=== PATIENT | female | born 1950 | race Caucasian/White ===

== ENCOUNTER → 2020-05-17 11:47 | Outpatient (BNVA) | payer MEDICARE, SELFPAY | PROVIDERS: Family Provider Nurse Practitioner Family; PCP Family Medicine; Referring Provider Nurse Practitioner Family; Visit Provider Orthopaedic Surgery | DX: M25.561 Pain in right knee (principal); M25.562 Pain in left knee; G89.29 Other chronic pain | CPT/HCPCS: 73560; 73565 ==

== ENCOUNTER → 2020-07-15 09:56 | Outpatient (BNVA) | payer MEDICARE, SELFPAY | PROVIDERS: PCP Family Medicine; Visit Provider Internal Medicine | DX: Z20.818 Contact with and (suspected) exposure to other bacterial communicable diseases (principal) | CPT/HCPCS: 87635 ==

== ENCOUNTER 2020-07-18 15:00 | Observation (INO) | payer MEDICARE, SELFPAY ==
[2020-07-12 11:52] VITALS: BMI 37.4
--- NOTE | 2020-07-12 12:05 | ECG_ITS ---
[facility] Test Date: 2020-07-12 Pat Name: Celsa Young Department: Room: Gender: Female Locum Tenens Hospitalist: : 1950 Requested By: Papito Evans Order Number: [id number] Jozef MD: Juan Antonio Mcdaniel M.D. Measurements Intervals [place] Rate: 64 P: 43 CT: 165 QRS: 1 QRSD: 98 T: -3 QT: 412 QTc: 426 Interpretive Statements SINUS RHYTHM ST DEVIATION AND MODERATE T-WAVE ABNORMALITY, CONSIDER ANTERIOR ISCHEMIA [-0.1+ mV T WAVE IN V3/V4] Compared to ECG 05/18/2019 05:59:32 No significant changes Electronically Signed On 07-12-2020 17:29:54 CDT by Juan Antonio Mcdaniel M.D. [id number]
[2020-07-12 12:16] LABS: Basophils % 0.4 %; Eosinophils # 0.2 10^3/uL (0.0-0.8); Eosinophils % 3.3 %; Hematocrit 40.4 % (37.0-47.0); Hemoglobin 12.9 g/dL (11.5-15.3); Lymphocytes % 26.8 %; Mean Corpuscular HGB Conc 31.9 g/dL (30.0-36.0); Mean Corpuscular Hemoglobin 28.4 pg (28.0-34.0); Mean Corpuscular Volume 88.8 fL (81-99); Mean Platelet Volume 9.2 fL (7.4-10.4); Monocytes # 0.4 10^3/uL (0.2-0.9); Monocytes % 5.8 %; Neutrophils # 4.61 10^3/uL (1.8-7.7); Neutrophils % 63.4 %; Nucleated Red Blood Cells % 0 %; Platelet Count 180 10^3/cmm (130-400); Red Blood Count 4.55 10^6/uL (4.1-5.3); Red Cell Distribution Width 13.6 % (12.1-15.1); White Blood Count 7.3 10^3/uL (4.0-10.0)
--- NOTE | 2020-07-12 12:29 | P.ANESASSM_ITS ---
Pre-Anesthetic Assessment Pre-Anesthetic Assessment: Height/Weight: Height 1.63 m Weight 98.883 kg Proposed Procedure: Operation Date: 07/18/20 12:00 Proposed Procedures p Total Knee Arthroplasty 48962 M17.12(Left) - Papito Evans MD Familial anesthetic complications: None Social: Social History: No alcohol and No tobacco Exam: Pre-Anes Outpt Exam: alert, oriented x 3, clear to auscultation bilaterally and regular rate & rhythm Airway: Cervical ROM: WNL MP: 4 Dentition: Loose Pulmonary: Pulmonary: Asthma and COPD CV/HEM: CV/HEM: CAD, CHF and HTN GI: GI: GERD Metabolic: Metabolic: DM, Hyperlipidemia, Morbid obesity and Thyroid Musc/skel: Comments: R shoulder pain Neuropsych: Neuropsych: None reported Anesthetic Plan: ASA status: 3 Anesthesia: Eval. for regional block and Regional (specify below) (spinal) Risk of > 500 ml blood loss (7ml/kg in children): No PFSH Anesthesia PFSH: Medical History HTN (hypertension) Surgical History S/P coronary angiogram Family History Other Cancer Diabetes Social History Smoking and tobacco status: former smoker Data Anesthesia CBC & Chem 7: 07/12/20 12:10 07/12/20 12:10 Other Labs: Laboratory Results - last 48 hr 07/12/20 12:10 WBC 7.3 RBC 4.55 Hgb 12.9 Hct 40.4 MCV 88.8 MCH 28.4 MCHC 31.9 RDW 13.6 Plt Count 180 MPV 9.2 Neut % (Auto) 63.4 Lymph % (Auto) 26.8 [place] % (Auto) 5.8 Eos % (Auto) 3.3 Baso % (Auto) 0.4 Neut # (Auto) 4.61 Lymph # (Auto) 2.0 [place] # (Auto) 0.4 Eos # (Auto) 0.2 Baso # (Auto) 0.0 Nucleated RBC % (auto) 0 Nucleated RBCs # 0.0 Cardiac Studies: No Data to Display
[2020-07-12 12:32] LABS: Anion Gap 12.8 (5-19); Blood Urea Nitrogen 12 mg/dL (8-23); Calcium 9.9 mg/dL (8.5-10.5); Carbon Dioxide 28 mmol/L (22-29); Chloride 103 mmol/L (98-107); Creatinine Clr Calc Pharmacy 74.7605; Glomerular Filtration Rate 98.8 mL/min (90-130); Glucose 114 mg/dL (65-115); Osmolality Calculated 287 mOsm/kg (285-295); Potassium 3.8 mmol/L (3.5-5.1); Sodium 140 mmol/L (136-145)
--- NOTE | 2020-07-12 12:45 | SUR.PREOP ---
Called patient and informed to be at [facility] in [facility] for covid testing on saturdayjuly 15 at 1100 am and verbalized understanding
[2020-07-18] VITALS (12 sets, daily range): BP systolic 102–191; BP diastolic 62–95; PULSE 56–73; RESP 16–24; TEMP 34.7–37.2; O2SAT 91–96
[2020-07-18] MEDS: sodium chloride 0.9% 1,000 ML 30 ML IV (10:20)
--- NOTE | 2020-07-18 10:56 | P.ANESUD_ITS ---
Pre-Anesthetic Update Pre-Anesthetic Assessment: Date of Surgery/Procedure: 07/18/20 Preop Mitra gnosis: DJD L knee Proposed Procedure: Operation Date: 07/18/20 12:00 Proposed Procedures p Total Knee Arthroplasty 71317 M17.12(Left) - Papito Evans MD Any changes to Pre-Anesthetic Assessment?: No Last Intake: Intake Last Liquid Date 07/17/20 Last Liquid Time 20:00 Last Solid Date 07/17/20 Last Solid Time 20:00 Vitals: Temperature 96.9 F L 07/18/20 10:12 Temperature Source Temporal Artery S can 07/18/20 10:12 Pulse Rate 67 07/18/20 10:12 Respiratory Rate 18 07/18/20 10:12 Blood Pressure 191/95 07/18/20 10:12 Blood Pressure Opal n 127 07/18/20 10:12 Pulse Oximetry 96 07/18/20 10:12 Oxygen Delivery Me thod 07/18/20 10:15 Exam: Pre-Anes Outpt Exam: alert, oriented x 3, clear to auscultation bilaterally and regular rate & rhythm Cardiac Studies: No Data to Display
--- NOTE | 2020-07-18 11:11 | ANES.PROC ---
Anesthesia Procedures Procedure/Date: 07/18/20 Nerve Block ^: Nerve Block 1: Main Anesthesia: spinal anesthesia block Time Out Performed: Yes Consent: requested by attending/covering physician, from patient, risks and benefits reviewed and patient agrees to proceed Nerve block location: adductor canal (L) Anesthesia monitors applied: pulse oximetry, EKG, BP cuff and oxygen Nerve block position: supine Anesthetic Used: ropivicaine 0.5% and with decadron (4 mg) Amount of anesthesia used (mL): 30 Ultrasound used to: recognize landmarks and visualize and ID femerol nerve Nerve Stimulator Used?: No Interscalene/Femoral BLK: 4 stimuplex 21 g needle used for position and inplane approach Injection: neg aspiration of heme and paresthesia +/- Patient Tolerated Procedure: well and no complications Complications: none
[2020-07-18] MEDS: midazolam 1 mg/mL INJ 5 ML 5 MG IVP (11:15)
[2020-07-18] MEDS: hyDRALAzine 20 mg/mL INJ 1 mL 5 MG IVP (11:45)
--- NOTE | 2020-07-18 11:46 | P.HP_ITS ---
Same Day Surgery H&P Indication for Procedure/HPI DATE OF PROCEDURE: July 18, 2020 CHIEF COMPLAINT/INDICATIONFOR SURGICAL PROCEDURE: Osteoarthritis left knee. She has been treated with anti-inflammatories and corticosteroid injections without improvement and is admitted for an elective left total knee arthroplasty PREOP DIAGNOSIS: DJD L knee PLANNED PROCEDRUE: Operation Date: 07/18/20 12:00 Proposed Procedures p Total Knee Arthroplasty 39138 M17.12(Left) - Papito Evans MD Medications/Allergies* Home Medications Medication Instructions Recorded Confirmed Type acetaminophen 650 mg 650 mg PO Q12H PRN 03/08/20 07/18/20 History tablet,extended release albuterol sulfate 90 mcg/actuation 2 puff INHALATION Q6H PRN 03/08/20 07/18/20 History aerosol inhaler aspirin 81 mg tablet,delayed 81 mg PO DAILY 03/08/20 07/18/20 History release atorvastatin 20 mg tablet 20 mg PO DAILY 03/08/20 07/18/20 History diclofenac sodium 75 mg 75 mg PO BID 03/08/20 07/18/20 History tablet,delayed release fluticasone propionate 50 1 spray INTRANASAL DAILY 03/08/20 07/18/20 History mcg/actuation nasal spray,suspension furosemide 20 mg tablet 20 mg PO DIRECTED tab 03/08/20 07/18/20 History gabapentin 100 mg capsule 100 mg PO TID 03/08/20 07/18/20 History isosorbide mononitrate 30 mg 30 mg PO BID tab 03/08/20 07/18/20 History tablet,extended release 24 hr levothyroxine 200 mcg capsule 200 mcg PO DAILY 03/08/20 07/18/20 History meclizine 25 mg tablet 25 mg PO DAILY PRN 03/08/20 07/18/20 History mecobalamin (vitamin B12) 1,000 1,000 mcg PO DAILY 03/08/20 07/18/20 History mcg disintegrating tablet,sublingual metoprolol tartrate 100 mg tablet 100 mg PO BID 03/08/20 07/18/20 History montelukast 10 mg tablet 10 mg PO DAILY 03/08/20 07/18/20 History pantoprazole 40 mg tablet,delayed 40 mg PO DAILY 03/08/20 07/18/20 History release potassium chloride 20 mEq 20 meq PO BID 03/08/20 07/18/20 History tablet,extended release sertraline 100 mg tablet 100 mg PO DAILY 03/08/20 07/18/20 History tramadol 50 mg tablet 50 mg PO DAILY PRN 03/08/20 07/18/20 History trazodone 100 mg tablet 100 mg PO DAILY PRN 03/08/20 07/18/20 History dulaglutide [Trulicity] 0.75 mg SUBCUT DIRECTED 07/12/20 07/18/20 History Allergies/Adverse Reactions Allergy/AdvReac Type Severity Reaction Status Date / Time Sulfa (Sulfonamide Allergy ALGY-Rash Verified 07/18/20 10:25 Antibiotics) Current Medications: Generic Name Dose Route Start Last Admin Trade Name Freq PRN Reason Stop Dose Admin Sodium Chloride 1,000 mls @ 30 mls/hr 07/18/20 08:30 07/18/20 10:20 Sodium Chloride 0.9% IV 07/19/20 08:29 30 mls/hr .Q24H MELINDA Administration Pertinent History/Comorbid Conditions* Medical History (Updated 03/11/20 @ 09:28 by Juan Antonio Mcdaniel MD) HTN (hypertension) Surgical History (Updated 03/11/20 @ 09:28 by Juan Antonio Mcdaniel MD) S/P coronary angiogram Family History (Updated 03/08/20 @ 13:09 by Tabitha Kennedy LPN) Diabetes Cancer Social History Smoking and tobacco status: former smoker Pertinent Exam Findings alert, oriented x 3, clear to auscultation bilaterally, regular rate & rhythm and operative site marked Recommendations Surgery/Procedure today Coding Level of Care Code Acute 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
[2020-07-18 12:28] LABS: Glucose Point of Care 116 mg/dL (70-110)
[2020-07-18] MEDS: tranexamic acid 1,000 mg/10mL SDV 1000 MG IRRIGATION (13:31)
[2020-07-18] MEDS: EPINEPHrine 1 mg/mL INJ XX (13:31)
[2020-07-18] MEDS: ketorolac 30 mg/mL INJ IM (13:31)
--- NOTE | 2020-07-18 14:54 | PM.OP ---
Operative Report Date of procedure: July 18, 2020 Pre-op Diagnosis: DJD L knee Post-op diagnosis: same Post-op Findings: Same Procedure Done: Left total knee Nick 1 Pathology: none sent Anesthesia: Nerve Block (Spinal/adductor canal block) Estimated blood loss (mL): 400 Complications: None Disposition: PACU Procedure: The patient was taken to the operating room. Patient was given 1 g of tranexamic acid . The above anesthesia provided by the anesthesia service. A timeout was performed. The patient was prepped and draped in the usual fashion with the lower extremity exposed. A anterior incision was made, midline, from a point proximal to the patella to the distal tibial tubercle. The knee was entered through a medial parapatellar approach. The patella could be displaced laterally and the knee flexed. The patellar fat pad was resected to provide better visibility. Retractors were placed medially and laterally adjacent to the tibial plateau. The femoral canal was drilled in line with the longitudinal axis of the femur. Intramedullary femoral guide for used to make a distal femoral cut in 5 degrees of valgus, resecting 8 mm from the more prominent medial femoral condyle and minimal resection from the lateral femoral condyle. Next the extra medullary tibial guide was placed in alignment with the longitudinal axis of the tibia. The cutting guides were set to remove just under 9 mm from the high medial tibial plateau. The proximal tibia was then cut. The femoral measuring guide was then placed over the distal femur. Rotation was verified checking the relationship of the guide to the condyle and the trochlear groove. The femur was measured and cut for the desired femoral component. The desired tibial baseplate was then chosen. A trial reduction with the femur tibial baseplate and polyethylene was done, assuring that the knee was stable throughout full motion. Ligament balancing involved no releases was accomplished with bone cuts..The tibia was prepared for the tibial baseplate. Patellar thickness was then measured. The patella was cut removing articular cartilage and prepared for appropriate size patellar button. All surfaces were cleaned with pulsatile lavage. The femur tibia and patella were then cemented into place. The posterior capsule and collateral ligaments were then injected with a solution of 100 mL of 0.2% ropivacaine, 1 mL of a 1:1000 epinephrine solution, and 30 mg of Toradol. Final polyethylene component was then snapped into place into the tibia. 2 grams of tranexamic acid were applied to the wound. The tourniquet was deflated. The tranxanemic acid was left contact with the knee for 5 minutes before the knee was irrigated with saline. The extensor retinaculum was closed with 1 Ethibond. The subcutaneous tissues were closed with 2-0 Vicryl and the skin was closed with skin jose. A compressive dressing was applied. The patient was taken to recovery room in stable condition. [employer] total knee arthroplasty components were used includin) Size 3 cruciate substituting femoral component 2) Size 3 universal tibial component 3) 29 mm /9 mm thickness Tritanium asymetric patella 4) Size 3/11 mm thickness cruciate substituting tibial bearing insert
--- NOTE | 2020-07-18 15:00 | SUR.PHASEI ---
1458 PATIENT TO PACU FROM OR. NO DISTRESS. TALKATIVE. DRESSING TO LEFT KNEE, CDI WITH JAN BANDAGE IN PLACE. LEFT PEDAL PULSE MARKED.
--- NOTE | 2020-07-18 15:04 | XRR_ITS ---
PROCEDURE INFORMATION: Exam: XR Left Knee Exam date and time: 07/18/2020 3:05 PM Age: 69 years old Clinical indication: Device placement; Joint replacement hardware; Prior surgery; Surgery date: Post-operative (0-2 days); Additional info: Left total knee TECHNIQUE: Imaging protocol: XR Left knee. Views: 1 or 2 views. COMPARISON: CR Knee 3 views Bilateral 08994 09/17/2017 12:38 PM FINDINGS: Bones/joints: No postoperative complication in the setting of arthroplasty. Anatomic alignment. Soft tissues: Postoperative intra-articular air and subcutaneous emphysema. Skin jose. XR/XR knee LT 1-2V 29955 IMPRESSION: No postoperative complication in the setting of arthroplasty.
--- NOTE | 2020-07-18 15:29 | PM.PACU ---
PACU note Post-Anesthesia Exam: awake and vital signs stable Disposition: admitted
--- NOTE | 2020-07-18 15:32 | SUR.PHASEI ---
1519 PATIENT TO MED SURG. NO DISTRESS. DENIES PAIN. DRESSING CDI, TO LEFT KNEE WITH JAN WRAP. FIRST ICE IN PLACE. PATIENT DENIES PAIN, TOLERATING ICE CHIPS.
--- NOTE | 2020-07-18 16:17 | PC.NURSE ---
physical therapy in room with patient.
[2020-07-18] MEDS: gabapentin 100 mg Capsule PO ×2 (17:09→20:48)
[2020-07-18] MEDS: potassium chloride ER 10 mEq Tablet 20 MEQ PO (17:12)
[2020-07-18] MEDS: metoprolol tartrate 50 mg Tablet 100 MG PO (17:12)
[2020-07-18] MEDS: diclofenac 75 mg DR Tablet PO (17:12)
[2020-07-18] MEDS: isosorbide mononitrate ER 30 mg Tablet PO (17:12)
[2020-07-18] MEDS: chlorhexidine gluconate 0.12% Btl 473 mL 30 ML MUCOUS MEM ×2 (17:13→20:47)
[2020-07-18] MEDS: mupirocin oint 22 gm 1 APPLIC NASAL (17:13)
[2020-07-18] MEDS: sennosides-docusate Tablet 2 TAB PO (17:13)
[2020-07-18] MEDS: FUROsemide 20 mg Tablet PO (17:13)
[2020-07-18] MEDS: lisinopril 5 mg Tablet PO (17:13)
[2020-07-18] MEDS: sodium chloride 0.9% 1,000 ML 75 ML IV (17:14)
--- NOTE | 2020-07-18 17:35 | PC.NURSE ---
Dr. Evans notified of patient wanting to resume trulicity home medication, new orders to be put in for sliding scale with novolog and hold off on the trulicity for now due to post op and advancing diet. patient made aware and verbalized understanding.
--- NOTE | 2020-07-18 18:44 | PC.NURSE ---
placed order for sliding scale novolog per Dr. Rosario orders
[2020-07-18 21:28] LABS: Glucose Point of Care 179 mg/dL (70-110)
[2020-07-18] MEDS: sodium chloride 0.45% 1,000 ML 75 ML IV (21:50)
[2020-07-19] VITALS (10 sets, daily range): BP systolic 99–153; BP diastolic 63–85; PULSE 63–72; RESP 16–18; TEMP 36.1–36.9; O2SAT 92–97
[2020-07-19 05:40] LABS: Basophils % 0.1 %; Eosinophils % 0.2 %; Hematocrit 32.2 % (37.0-47.0); Hemoglobin 10.2 g/dL (11.5-15.3); Lymphocytes # 1.3 10^3/uL (0.8-4.8); Lymphocytes % 15.2 %; Mean Corpuscular HGB Conc 31.7 g/dL (30.0-36.0); Mean Corpuscular Hemoglobin 28.3 pg (28.0-34.0); Mean Corpuscular Volume 89.4 fL (81-99); Mean Platelet Volume 9.5 fL (7.4-10.4); Monocytes # 0.5 10^3/uL (0.2-0.9); Monocytes % 5.9 %; Neutrophils # 6.82 10^3/uL (1.8-7.7); Nucleated Red Blood Cells % 0 %; Platelet Count 179 10^3/cmm (130-400); Red Cell Distribution Width 13.7 % (12.1-15.1); White Blood Count 8.8 10^3/uL (4.0-10.0)
[2020-07-19 06:05] LABS: Anion Gap 10.7 (5-19); Blood Urea Nitrogen 15 mg/dL (8-23); Calcium 9.3 mg/dL (8.5-10.5); Carbon Dioxide 24 mmol/L (22-29); Chloride 106 mmol/L (98-107); Creatinine Clr Calc Pharmacy 74.7605; Glomerular Filtration Rate 98.8 mL/min (90-130); Glucose 135 mg/dL (65-115); Osmolality Calculated 282 mOsm/kg (285-295); Potassium 3.7 mmol/L (3.5-5.1); Sodium 137 mmol/L (136-145)
[2020-07-19] MEDS: diphenhydrAMINE 50 mg Capsule PO (06:09)
[2020-07-19 06:49] LABS: Glucose Point of Care 117 mg/dL (70-110)
--- NOTE | 2020-07-19 07:22 | ANE.PACU2 ---
Inpatient post-anesthesia follow up: Airway intact: Yes Vital signs: Temperature 97.8 F Pulse Rate 63 Respiratory Rate 18 Blood Pressure 99/63 Pulse Oximetry 94 Oxygen Delivery Me thod Room Air Oxygen Flow Rate Fraction of Inspir ed Oxygen Hydration adequate: Yes Nausea and vomiting: No Pain level: 1 Mental status: Baseline
--- NOTE | 2020-07-19 07:46 | PC.NURSE ---
Assisted up to chair, X2 minimum assist, denies pain, discussed plan of care, verbalized understanding.
--- NOTE | 2020-07-19 09:01 | PC.NURSE ---
patient urinated in toliet and is now passing gas per OT Crys. quality analyst/technical writer charted urination.
[2020-07-19] MEDS: sertraline 100 mg Tablet PO (09:14)
[2020-07-19] MEDS: metoprolol tartrate 50 mg Tablet 100 MG PO ×2 (09:14→16:51)
[2020-07-19] MEDS: aspirin 81 mg EC Tablet PO (09:14)
[2020-07-19] MEDS: chlorhexidine gluconate 0.12% Btl 473 mL 30 ML MUCOUS MEM ×3 (09:14→16:13)
[2020-07-19] MEDS: mupirocin oint 22 gm 1 APPLIC NASAL ×2 (09:14→16:52)
[2020-07-19] MEDS: pantoprazole DR 40 mg Tablet PO (09:14)
[2020-07-19] MEDS: levothyroxine 100 mcg Tablet 200 MCG PO (09:15)
[2020-07-19] MEDS: FUROsemide 20 mg Tablet 40 MG PO (09:15)
[2020-07-19] MEDS: potassium chloride ER 10 mEq Tablet 20 MEQ PO ×2 (09:15→16:51)
[2020-07-19] MEDS: lisinopril 5 mg Tablet PO ×2 (09:15→16:51)
[2020-07-19] MEDS: montelukast sodium 10 mg Tablet PO (09:15)
[2020-07-19] MEDS: gabapentin 100 mg Capsule PO ×2 (09:15→14:44)
[2020-07-19] MEDS: isosorbide mononitrate ER 30 mg Tablet PO ×2 (09:15→16:52)
[2020-07-19] MEDS: sennosides-docusate Tablet 2 TAB PO ×2 (09:15→16:51)
[2020-07-19] MEDS: atorvastatin 40 mg Tablet 20 MG PO (09:15)
[2020-07-19] MEDS: amlodipine 5 mg Tablet PO (09:15)
[2020-07-19] MEDS: fluticasone nasal spray 16gm Btl 1 SPRAY INTRANASAL (09:25)
[2020-07-19] MEDS: diclofenac 75 mg DR Tablet PO ×2 (09:25→16:52)
[2020-07-19] MEDS: oxyCODONE 5 mg IR Tab/Cap PO ×2 (09:31→16:15)
--- NOTE | 2020-07-19 09:36 | PC.NURSE ---
Assisted back to bed per patient request, reports pain level of 5 on 0-10 pain scale, requesting medication, PRN oxy given see MAR for further details, foot pumps reapplied, call light in reach.
[2020-07-19 10:40] LABS: Glucose Point of Care 128 mg/dL (70-110)
--- NOTE | 2020-07-19 10:51 | PC.CHAP ---
Pastoral Care Encounter/Spiritual Assessment Type of Contact [x] Declined tent assembler visit [] Patient/Family/Request visit [] Outpatient visit [] Follow-up visit [] Physician referral [] Code/Alert [] Routine visit [] Staff referral [] Actively dying [] Patient sleeping [] Family support [] [] Out of room [] Palliative care [] [] Receiving care in room [] Pre-surgical visit [] Trauma [] Long length of stay [] ICU visit [] Other: Relational/Emotional Strength [] Patient feels connected with others/family/visitors/staff [] Distress [] Loneliness/isolation [] Abandonment Spirituality of Patient [] Person of Keisha [] Attends Quaker of their Keisha [] Believes in Prayer [] Reads Bible or Synagogue materials [] There are Spiritual issues to be addressed Well Puller Interventions [] Prayer [] Active listening [] Non-anxious presence [] Spiritual/emotional support [] Crisis/trauma care [] Spiritual counseling [] Bereavement support [] Provided bereavement packet [] Provided Bible/devotional materials [] Provided toy/stuffed animal, coloring book to patient or family member [] Provided Communion [] Anointing/Fidelity [] Salvation [] Completed spiritual assessment [] Other: Impact on Illness or Injury [] Angry [] Fearful [] Anxious [] Often cries [] Exhaustion [] Unable to work [] Unable to attend samaritan [] Unable to walk/stand [] Unable to read [] Unable to drive [] Unable to eat/drink [] Unable to sleep [] Unable to be with family [] Patient intubated [] Other: Summary Patient declined Well Puller visit. Time spent with patient
--- NOTE | 2020-07-19 11:13 | PC.NURSE ---
Dr. Evans notified patient refusing cefazolin due to reaction last night of itching, Dr. Evans okayd to DC order.
[2020-07-19] MEDS: TRAMadol 50 mg Tablet PO (12:19)
--- NOTE | 2020-07-19 13:01 | PC.NURSE ---
Physical therapy in room with patient, no distress noted.
[2020-07-19] MEDS: FUROsemide 20 mg Tablet PO (16:51)
--- NOTE | 2020-07-19 16:52 | P.DS_ITS ---
Discharge Providers Date of Admission: 07/18/20 15:00 Date of Discharge: July 19, 2020 Attending Provider at Admission: Papito Evans MD Attending Provider at Discharge: Papito Evans MD Primary Care Provider: Polly Madison MD Diagnoses at Discharge Discharge Diagnosis (1) Status post left knee replacement: Status: Acute (2) Osteoarthritis of left knee: Status: Resolved (3) Diabetes mellitus: Status: Acute Reason for Visit Reason for Visit: left total knee arthorplasy Hospital Course Hospital Course: The patient tolerated surgery well. They remained hemodynamically stable. They was begun on aspirin and sequential compression devices for DVT prophylaxis. The patient was mobilized with therapy beginning the day of surgery and by the first postoperative day independent with the walker. As the pain was adequately controlled and they were fully mobile they were discharged home. Physical Exam Narrative: EXAM NARRATIVE: On the day of discharge his knee incision was clean. They had no drainage. There is minimal swelling in the thigh and knee and the calf. No distal neurovascular deficits were noted Urinary Catheter Management^: F: Cath Placed During This Visit: yes, but has since been removed by the nurse Reason for Continuing Indwelling Catheter: Decision to DC Catheter Urinary Catheter Date of Insertion: 07/18/20 Urinary Catheter Time of Insertion: 12:55 Date Urinary Catheter Removed: 07/19/20 Time Urinary Catheter Discontinued: 06:00 Discharge Data Data Completed and Pending: Completed Studies During Hospitalization Category Date Time Status XR knee LT 1-2V 7 3560 Routine Exams 07/18/20 15:04 Completed Pending at discharge Category Date Time Status Complete Blood Co unt w/Auto AM LABS Lab 07/20/20 04:00 Ordered Complete Blood Co unt w/Auto AM LABS Lab 07/21/20 04:00 Ordered Labs from last 24 hours 07/19/20 07/19/20 07/19/20 10:27 06:45 05:02 WBC RBC Hgb Hct MCV MCH MCHC RDW Plt Count MPV Neut % (Auto) Lymph % (Auto) [place] % (Auto) Eos % (Auto) Baso % (Auto) Neut # (Auto) Lymph # (Auto) [place] # (Auto) Eos # (Auto) Baso # (Auto) Nucleated RBC % (a uto) Nucleated RBCs # Sodium 137 Potassium 3.7 Chloride 106 Carbon Dioxide 24 Anion Gap 10.7 BUN 15 Creatinine 0.6 GFR Calculation 98.8 Glucose 135 H POC Glucose 128 117 Calculated Osmolal ity 282 L Calcium 9.3 07/19/20 07/18/20 05:02 21:24 WBC 8.8 RBC 3.60 L Hgb 10.2 L Hct 32.2 L MCV 89.4 MCH 28.3 MCHC 31.7 RDW 13.7 Plt Count 179 MPV 9.5 Neut % (Auto) 78.0 Lymph % (Auto) 15.2 [place] % (Auto) 5.9 Eos % (Auto) 0.2 Baso % (Auto) 0.1 Neut # (Auto) 6.82 Lymph # (Auto) 1.3 [place] # (Auto) 0.5 Eos # (Auto) 0.0 Baso # (Auto) 0.0 Nucleated RBC % (a uto) 0 Nucleated RBCs # 0.0 Sodium Potassium Chloride Carbon Dioxide Anion Gap BUN Creatinine GFR Calculation Glucose POC Glucose 179 Calculated Osmolal ity Calcium Vitals: Last Vital Signs Temp 97.0 F L 07/19/20 16:17 Pulse 72 07/19/20 16:17 Resp 18 07/19/20 16:17 BP 153/79 07/19/20 16:17 Pulse Ox 95 07/19/20 16:17 Discharge Plan Discharge Patient Disposition: Home Condition: Stable Prescriptions: New oxycodone 5 mg Tablet 5 mg PO Q4H PRN (Reason: Moderate Pain) 7 Days Qty: 40 RF: 0 Continued gabapentin 100 mg capsule 100 mg PO TID RF: 0 potassium chloride 20 mEq tablet extended release 20 meq PO BID RF: 0 furosemide [Lasix] 20 mg tablet 20 mg PO DIRECTED RF: 0 aspirin [Adult Low Dose Aspirin] 81 mg tablet,delayed release (DR/EC) 81 mg PO DAILY RF: 0 sertraline 100 mg tablet 100 mg PO DAILY RF: 0 meclizine 25 mg tablet 25 mg PO DAILY PRN (Reason: DIZZINESS) RF: 0 atorvastatin 20 mg tablet 20 mg PO DAILY RF: 0 metoprolol tartrate 100 mg tablet 100 mg PO BID RF: 0 isosorbide mononitrate 30 mg tablet extended release 24 hr 30 mg PO BID RF: 0 levothyroxine 200 mcg capsule 200 mcg PO DAILY RF: 0 trazodone 100 mg tablet 100 mg PO DAILY PRN (Reason: Pain) RF: 0 pantoprazole 40 mg tablet,delayed release (DR/EC) 40 mg PO DAILY RF: 0 diclofenac sodium 75 mg tablet,delayed release (DR/EC) 75 mg PO BID RF: 0 mecobalamin (vitamin B12) 1,000 mcg tablet,disintegrating 1,000 mcg PO DAILY RF: 0 montelukast 10 mg tablet 10 mg PO DAILY RF: 0 albuterol sulfate [ProAir HFA] 90 mcg/actuation HFA aerosol inhaler 2 puff INHALATION Q6H PRN (Reason: WHEEZING) RF: 0 fluticasone propionate [Flonase Allergy Relief] 50 mcg/actuation spray,suspension 1 spray INTRANASAL DAILY RF: 0 tramadol 50 mg tablet 50 mg PO DAILY PRN (Reason: PAIN) RF: 0 acetaminophen [Tylenol Arthritis Pain] 650 mg tablet extended release 650 mg PO Q12H PRN (Reason: PAIN) RF: 0 nitroglycerin [Nitrostat] 0.4 mg tablet, sublingual 0.4 mg SUBLINGUAL Q5M PRN (Reason: chest pain) 30 Days Qty: 25 RF: 3 lisinopril 5 mg tablet 5 mg PO BID Qty: 180 RF: 3 amlodipine 5 mg tablet 5 mg PO DAILY Qty: 30 RF: 5 Trulicity 0.75 mg/0.5 mL Pen Injector 0.75 mg SUBCUT DIRECTED RF: 0 Discharge Orders: Discharge Order (Routine); Ordered 07/19/20 Ordered By: Papito Evans Other Ambulatory Orders: DME: Walker (Order) Location: None Selected Ordered By: Papito Evans Referrals: Papito Evans MD [Physician] - 08/02/20 3:45 pm Discharge Diet: Advance as tolerated Discharge Activity: Use walker/crutches as instructed Activity Restrictions/Additional Instructions: May shower once incisions completely free of drainage. Discontinue knee dressing in 24-48 hours. Replaced dressings as needed. take oxycodone for breakthrough pain. Exercises per physical therapy. May weight-bear as tolerated on total knee arthroplasty Discharge Attestations Time Spent in Discharge Care*: other Quality Metrics Clinical Quality Measures During this hospital stay, did patient experience: None Coding Level of Care Code Acute Doctor Of Podiatric Medicine for Dayanna Fwzackary Diagnoses Status post left knee replacement Z96.652 Osteoarthritis of left knee M17.12 Diabetes mellitus E11.9
[2020-07-19 16:57] LABS: Glucose Point of Care 128 mg/dL (70-110)
--- NOTE | 2020-07-19 17:10 | PC.NURSE ---
Oxycodone IR 5mg PO tablet X3 sent home with patient due to patients pharmacy being closed and script is already received and will be filled tomorrow morning. Verified with Leona Baker RN.
--- NOTE | 2020-07-19 18:15 | PC.NURSE ---
patient discharged home with daughter. patient was given 3 oxycodone 5mg tablets for home use because her pharmacy was closed. patient assisted into vehicle by check writer.
== END 2020-07-19 18:17 | disposition home or self-care (01) ==
LOC: MEDSURG 15:32
PROVIDERS: Admitting Provider Orthopaedic Surgery; PCP Family Medicine; Visit Provider Orthopaedic Surgery
PROC: (CPT 27447; principal; 2020-07-18 12:00)
DX: M17.12 Unilateral primary osteoarthritis, left knee (principal); J44.9 Chronic obstructive pulmonary disease, unspecified; I11.0 Hypertensive heart disease with heart failure; I50.9 Heart failure, unspecified; I25.10 Atherosclerotic heart disease of native coronary artery without angina pectoris; E11.9 Type 2 diabetes mellitus without complications; E78.5 Hyperlipidemia, unspecified; E66.01 Morbid (severe) obesity due to excess calories; Z87.891 Personal history of nicotine dependence; Z79.82 Long term (current) use of aspirin; Z88.2 Allergy status to sulfonamides; I10 Essential (primary) hypertension
CPT/HCPCS: 27447; 12345; 36415; 36416; 51702; 73560; 80048; 82962; 85025; 93005; 96365; 96372; 96374; 97110; 97116; 97161; 97165; 97530; C1776; G0378; J0171; J0360; J0690; J1100; J1580; J1815; J1885; J2250; J2274; J2704; J2795; J3010; J3490; J7030; Q0163

== ENCOUNTER 2020-08-23 10:00 | Outpatient (RCR) | payer MEDICARE, SELFPAY | END 2020-08-24 10:00 | disposition home or self-care (01) | LOC: WPT 10:00 | PROVIDERS: PCP Nurse Practitioner Family; Visit Provider Orthopaedic Surgery | DX: Z47.89 Encounter for other orthopedic aftercare (principal) | CPT/HCPCS: 97110; 97163 ==

== ENCOUNTER → 2020-08-30 14:43 | Outpatient (BNVA) | payer MEDICARE, SELFPAY | PROVIDERS: PCP Family Medicine; Visit Provider Orthopaedic Surgery | DX: Z48.89 Encounter for other specified surgical aftercare (principal) | CPT/HCPCS: 73560; 73565 ==

== ENCOUNTER → 2021-01-16 14:39 | Outpatient (BNVA) | payer MEDICARE, SELFPAY | PROVIDERS: PCP Family Medicine; Visit Provider Orthopaedic Surgery | DX: Z96.652 Presence of left artificial knee joint | CPT/HCPCS: 73560; 73565 ==

== ENCOUNTER → 2021-01-17 14:29 | Outpatient (BNVA) | payer MEDICARE, SELFPAY | PROVIDERS: PCP Family Medicine; Visit Provider Internal Medicine Cardiovascular Disease | DX: I25.110 Atherosclerotic heart disease of native coronary artery with unstable angina pectoris (principal); R06.02 Shortness of breath | CPT/HCPCS: 87635 ==

== ENCOUNTER → 2021-01-27 12:18 | Outpatient (BNVA) | payer MEDICARE, SELFPAY | PROVIDERS: PCP Family Medicine; Visit Provider Internal Medicine Cardiovascular Disease | DX: Z20.822 Contact with and (suspected) exposure to COVID-19 (principal); I25.110 Atherosclerotic heart disease of native coronary artery with unstable angina pectoris; R06.02 Shortness of breath | CPT/HCPCS: 87635 ==

== ENCOUNTER 2021-02-03 12:22 | Day surgery (SDC) | payer MEDICARE, SELFPAY ==
[2021-01-27 13:05] LABS: Basophils % 0.4 %; Eosinophils # 0.3 10^3/uL (0.0-0.8); Hematocrit 39.1 % (37.0-47.0); Hemoglobin 12.7 g/dL (11.5-15.3); Lymphocytes # 2.4 10^3/uL (0.8-4.8); Lymphocytes % 32.9 %; Mean Corpuscular HGB Conc 32.5 g/dL (30.0-36.0); Mean Corpuscular Hemoglobin 28.2 pg (28.0-34.0); Mean Corpuscular Volume 86.9 fL (81-99); Mean Platelet Volume 9.5 fL (7.4-10.4); Monocytes # 0.5 10^3/uL (0.2-0.9); Monocytes % 6.7 %; Neutrophils # 4.03 10^3/uL (1.8-7.7); Neutrophils % 55.6 %; Nucleated Red Blood Cells % 0 %; Platelet Count 231 10^3/cmm (130-400); Red Cell Distribution Width 14.4 % (12.1-15.1); White Blood Count 7.3 10^3/uL (4.0-10.0)
[2021-01-27 13:15] LABS: INR 0.98 (0.83-1.21); Prothrombin Time (Patient) 13.3 Seconds (12.0-15.1)
[2021-01-27 13:21] LABS: Anion Gap 11.7 (5-19); Blood Urea Nitrogen 11 mg/dL (8-23); Calcium 9.4 mg/dL (8.5-10.5); Carbon Dioxide 28 mmol/L (22-29); Chloride 103 mmol/L (98-107); Glucose 104 mg/dL (65-115); Osmolality Calculated 288 mOsm/kg (285-295); Potassium 3.7 mmol/L (3.5-5.1); Sodium 139 mmol/L (136-145)
[2021-02-03] VITALS (38 sets, daily range): BP systolic 108–163; BP diastolic 53–103; PULSE 61–74; RESP 11–29; TEMP 36.2; O2SAT 90–96; BMI 38.9
--- NOTE | 2021-02-03 13:30 | XACV_ITS ---
Ht: 163 cm Wt: 103 kg BSA: 2.21 m2 Gender: Female : 1950 Any Known Allergies: Sulfa Exam Priority: Routine Procedure(s): Procedure Description: Diagnostic procedure Procedure Description: Left Heart Catheterization Procedure Description: Right Heart Catheterization Diagnostic Cath Status: Elective Diagnostic Findings * No significant disease noted in the Left Main, LAD, Circumflex, or RCA coronary arteries. * Coronary angiography shows right dominance. Conclusions 1. Right heart catheterization:Pulmonary capillary wedge pressure 5 mmHgPA mean 17 mmHg 2. RV 27/-1 mean of 13 mm 3. Hg 4. RA mean 2 mmHgStroke-volume 93.98 mL per beat. Cardiac output 6.3 L/min, cardiac index 3.4 L/min meter squaredNo significant stepup notedLeft heart catheterization: Normal coronariesNormal left mainNormal LADNormal circumflexNormal RCA 5. . 6. No significant disease noted in the Left Main, LAD, Circumflex, or RCA coronary arteries. Recommendations * Continue current medical management and risk factor modification. Diagnostic RX Recommendation: medical therapy and/or counseling Pressures Phase:Rest RV : 48 / 12 / @ 10:41:00 AM PA : 51 / 25 ( 36 ) @ 10:39:00 AM RA : a wave = v wave = mean = 13 @ 10:42:00 AM O2 Content Phase:Rest PA : O2 Content O2: 60.2 @ 10:45:00 AM Saturations Phase:Rest AO : 93 @ 10:41:00 AM RA : 51 @ 10:39:00 AM RV : 54 @ 10:42:00 AM PA : 60 @ 10:45:00 AM Cardiac Output Phase:Rest Tonio : 5 @ 10:39:00 AM Tonio Cardiac Index: 2 @ 10:39:00 AM Clinical Evaluation EBL: 5mL-10mL Procedural Details Procedure Consent Obtained. Admit Source: In Patient. Pre-Procedure Time Out. Identified patient by full name and date of as verbalized by the patient/guarantor. Does the consent match the physician's order: Yes. Accurate & Complete Informed Consent: Yes. Inpatient/Outpatient History & Physical on Chart: Yes. If H&P is completed, is and addenduem needed: N/A; If yes, is the addendum complete: N/A. Visualize and Verify Site with Patient/Guarantor: N/A. Relevant Radiology Images available: N/A. Pre-op teaching completed and patient verbalized understanding. The risks, benefits, and alternatives of sedation and/or procedure were discussed by physician. The patient agrees to continue. Procedure started. Correct patient, site and procedure confirmed by cath team. PERRLA. Strong, equal hand car usher bilaterally. Lungs clear x 5 lobes. IV Site on Arrival: 20 gauge in the left anticubital. Oxygen started at 2liters/min via nasal canula. bilateral groins was prepped with chloroprep then draped in the usual sterile fashion. right radial was prepped with chloroprep then draped in the usual sterile fashion. Baseline sample Acquired. HR: 0 BPM. Physician notified. Physician arrived. Physician scrubbed in. Immediate Pre-Procedure Time Out. Correct Patient: Yes; Correct Procedure: Yes; Correct Site: Yes; Correct Patient Position: Yes; Correct Supplies: Yes; Dried Flammable Prep: Yes; Blood Products Available: N/A;. Lidocaine 1% infiltrated to the right groin. Venous access obtained with a micropuncture set. [place] VIP catheter inserted. Oximetry samples were obtained. [place] out. Sheath(s) sutured into position with 2-0 silk and sterile 4x4's and Op-site applied over the site. No oozing or signs and symptoms of hematoma noted. Lidocaine 1% infiltrated to the right radial. Arterial access obtained. 6F sheath inserted. A 5 mongolian TIG catheter in over wire. exchange wire out. Glidwire inserted. glidewire out. Multiple views taken of left coronary artery. TR band placed. Hemostasis obtained. PERRLA. Strong, equal hand car usher bilaterally. No VTE prophylaxis required. Medication's Wasted: Other = versed 1 mg. Medication's Wasted: Heparin = 1000 units. Medication's Wasted: Lidocaine 1% = 16 mL. Total IV fluids: 75 mL. Contrast type used: Visipaque 320 mgI/mL, 500 mL bottle. Contrast Material : Visipaque 155 ml. A TR Band was successful obtaining hemostatsis at the Right Radial artery insertion site. A Suture was successful obtaining hemostatsis at the Right Femoral vein insertion site. [facility] Clinical Fraility Score: 4: Vulnerable. Restaurant Expeditor Indications: Worsening Angina. Restaurant Expeditor Indications: Stable Known CAD. Chest Pain Symptom Assessment: Atypical Angina. Cardiovascular Instability: No. Post-op diagnosis: non obstructinve CAD. Complications: none. Estimated blood loss: 5mL-10mL. Procedure completed. Patient transferred by bed to 1st floor. Vital chart was stopped. Access Site Site: Right Femoral vein Sheath Size: 6 Fr Hemostasis Method: Suture Hemostasis Success: Successful Site: Right Radial artery Sheath Size: 6 Fr Hemostasis Method: TR Band Hemostasis Success: Successful Procedure Medications Start: 3:11 PM Stop: 3:11 PM Medication: Fentanyl Amount: 50 mcg Route: I.V. Start: 3:16 PM Stop: 3:16 PM Medication: Versed Amount: 1 mg Route: I.V. Start: 3:21 PM Stop: 3:21 PM Medication: Versed Amount: 1 mg Route: I.V. Start: 3:29 PM Stop: 3:29 PM Medication: Fentanyl Amount: 50 mcg Route: I.V. Start: 3:30 PM Stop: 3:30 PM Medication: Versed Amount: 1 mg Route: I.V. Start: 3:38 PM Stop: 3:38 PM Medication: Fentanyl Amount: 25 mcg Route: I.V. Start: 3:41 PM Stop: 3:41 PM Medication: Fentanyl Amount: 25 mcg Route: I.V. Start: 3:44 PM Stop: 3:44 PM Medication: Versed Amount: 1 mg Route: I.V. Start: 3:54 PM Stop: 3:54 PM Medication: Fentanyl Amount: 25 mcg Route: I.V. Start: 3:58 PM Stop: 3:58 PM Medication: Versed Amount: 1 mg Route: I.V. Start: 4:01 PM Stop: 4:01 PM Medication: Heparin Amount: 5000 units Route: I.V. I, the attending physician, have reviewed and verified all procedure medications. Yes, all medications given per verbal order History/Risk Factors Hypertension: Yes Tobacco Use: Former Report Signatures Finalized by Juan Antonio Mcdaniel MD on 02/15/2021 05:11 PM
--- NOTE | 2021-02-03 14:17 | P.HP_ITS ---
Same Day Surgery H&P Indication for Procedure/HPI DATE OF PROCEDURE: February 03, 2021 70-year-old female past medical history significant for nonobstructive coronary artery disease with LAD moderate stenosis history managed medically was reporting worsening of the symptoms including chest pressure on [id number] exertion along with worsening of shortness of breath which is more than usual. On different occasion we continue to optimize her medicine and control her blood pressure but patient symptoms worsens. She was offered stress test but she would not like to do it and declined. No she is to the point that she feels chest pressure almost daily basis it is the reason patient has been brought in today for unexplained shortness of breath along with chest pressure which will further be assessed through left and right heart cath. I have explained patient by myself all risk benefit and alternative for the procedure. She has been explained the risk for stroke urgent emergent bypass major minor bleed arrhythmia and worse case scenario . She would like to proceed with it. CHIEF COMPLAINT/INDICATIONFOR SURGICAL PROCEDURE: Chest pain suspicious for angina, unexplained shortness of breath PREOP DIAGNOSIS: DJD L knee PLANNED PROCEDRUE: Operation Date: 02/03/21 13:30 Proposed Procedures p left and right Cardiac 13392 r06.2 r07.9(Bilateral) - Juan Antonio Mcdaniel MD Medications/Allergies* Home Medications Medication Instructions Recorded Confirmed Type acetaminophen 650 mg 650 mg PO Q12H PRN 03/08/20 01/18/21 History tablet,extended release albuterol sulfate 90 mcg/actuation 2 puff INHALATION Q6H PRN 03/08/20 01/18/21 History aerosol inhaler aspirin 81 mg tablet,delayed 81 mg PO DAILY 03/08/20 01/18/21 History release atorvastatin 20 mg tablet 20 mg PO DAILY 03/08/20 01/18/21 History diclofenac sodium 75 mg 75 mg PO BID 03/08/20 01/18/21 History tablet,delayed release fluticasone propionate 50 1 spray INTRANASAL DAILY 03/08/20 01/18/21 History mcg/actuation nasal spray,suspension furosemide 20 mg tablet 20 mg PO DIRECTED tab 03/08/20 01/18/21 History gabapentin 100 mg capsule 100 mg PO TID 03/08/20 01/18/21 History isosorbide mononitrate 30 mg 30 mg PO BID tab 03/08/20 01/18/21 History tablet,extended release 24 hr levothyroxine 200 mcg capsule 200 mcg PO DAILY 03/08/20 01/18/21 History meclizine 25 mg tablet 25 mg PO DAILY PRN 03/08/20 01/18/21 History mecobalamin (vitamin B12) 1,000 1,000 mcg PO DAILY 03/08/20 01/18/21 History mcg disintegrating tablet,sublingual montelukast 10 mg tablet 10 mg PO DAILY 03/08/20 01/18/21 History pantoprazole 40 mg tablet,delayed 40 mg PO DAILY 03/08/20 01/18/21 History release sertraline 100 mg tablet 100 mg PO DAILY 03/08/20 01/18/21 History trazodone 100 mg tablet 100 mg PO DAILY PRN 03/08/20 01/18/21 History Trulicity 0.75 mg SUBCUT DIRECTED 07/12/20 01/18/21 History cholecalciferol (vitamin D3) 25 25 mcg PO DAILY 12/08/20 01/18/21 History mcg (1,000 unit) capsule melatonin 10 mg tablet 20 mg PO DAILY tab 12/08/20 01/18/21 History metoprolol tartrate 100 mg tablet 50 mg PO BID tab 12/08/20 01/18/21 History potassium chloride 20 mEq 20 meq PO DAILY tab 12/08/20 01/18/21 History tablet,extended release Allergies/Adverse Reactions Allergy/AdvReac Type Severity Reaction Status Date / Time Sulfa (Sulfonamide Allergy ALGY-Rash Verified 01/16/21 14:22 Antibiotics) Pertinent History/Comorbid Conditions* Medical History (Updated 01/16/21 @ 15:09 by Papito Evans MD) CAD (coronary artery disease) Diabetes mellitus HTN (hypertension) Surgical History (Updated 07/20/20 @ 00:01 by ) S/P coronary angiogram S/P knee replacement Family History (Updated 03/08/20 @ 13:09 by Tabitha Kennedy LPN) Diabetes Cancer Social History Smoking and tobacco status: former smoker Alcohol intake: never Pertinent Exam Findings alert, oriented x 3, clear to auscultation bilaterally, regular rate & rhythm and operative site marked Related Problem List Diagnoses (1) CAD (coronary artery disease): Qualifiers: Coronary Disease-Associated Artery/Lesion type: [place] artery [place] vs. transplanted heart: [place] heart Associated angina: with unstable angina Qualified Code(s): I25.110 - Atherosclerotic heart disease of [place] coronary artery with unstable angina pectoris (2) Shortness of breath: (3) HTN (hypertension): Qualifiers: Hypertension type: essential hypertension Qualified Code(s): I10 - Essential (primary) hypertension Recommendations Surgery/Procedure today Coding Level of Care Code Acute [employer] In [employer] [facility] Fwd Diagnoses CAD (coronary artery disease) I25.110 Coronary Disease-Associated Artery/Lesion type: [place] artery [place] vs. transplanted heart: [place] heart Associated angina: with unstable angina Shortness of breath R06.02 HTN (hypertension) I10 Hypertension type: essential hypertension
--- NOTE | 2021-02-03 16:30 | PC.NURSE ---
Pt returned from heart cath with right TR band on right wrist and right femoral venous sheath. DRSG dry and intact. Pt had no c/o pain or discomfort at the present time. Call light in reach.
--- NOTE | 2021-02-03 16:45 | PC.NURSE ---
Received Pt from laborer [facility] [facility] to room 111 bed 1. Pt A&O x4. Pt had no c/o pain. Call light in reach. Will cont to monitor.
[2021-02-03] MEDS: TRAMadol 50 mg Tablet PO (17:19)
--- NOTE | 2021-02-03 18:30 | PC.NURSE ---
Removed 2ml from TR band
--- NOTE | 2021-02-03 18:45 | PC.NURSE ---
Removed 2ml of air from TR band. Total of 4ml.
--- NOTE | 2021-02-03 19:00 | PC.NURSE ---
Removed 2ml from TR band. Total of 6 ml.
--- NOTE | 2021-02-03 19:48 | PC.NURSE ---
2ml of air removed from TR band. Total of 8ml.
--- NOTE | 2021-02-03 19:55 | PC.NURSE ---
venous sheath removed from right groin at this time patient tolerated well no hematoma min bleeding noted
[2021-02-03] MEDS: isosorbide mononitrate ER 30 mg Tablet PO (20:08)
[2021-02-03] MEDS: FUROsemide 20 mg Tablet PO (20:08)
[2021-02-03] MEDS: lisinopril 5 mg Tablet PO (20:09)
--- NOTE | 2021-02-03 20:12 | PC.NURSE ---
other delay other pt care
--- NOTE | 2021-02-03 20:17 | PC.NURSE ---
2ml removed from TR band. 10 total
--- NOTE | 2021-02-03 20:18 | PC.NURSE ---
2ml remove from TR band total of 12
[2021-02-03 20:46] LABS: Glucose Point of Care 111 mg/dL (70-110)
[2021-02-03] MEDS: gabapentin 100 mg Capsule PO (20:48)
[2021-02-03] MEDS: metoprolol tartrate 50 mg Tablet PO (20:48)
[2021-02-04 03:00] VITALS: BP 118/65; PULSE 72; RESP 20; TEMP 36.9; O2SAT 95
[2021-02-04 06:37] VITALS: PULSE 71
[2021-02-04 06:47] LABS: Glucose Point of Care 121 mg/dL (70-110)
[2021-02-04 07:00] VITALS: BP 133/82; PULSE 77; RESP 25; TEMP 36.2; O2SAT 93
--- NOTE | 2021-02-04 07:35 | PC.NURSE ---
Pt presents sitting on the side of the bed drinking coffee and talking to staff. Pts resp even and non-labored no distress noted. Pt had no c/o pain or discomfort at the present time. No needs voiced. Call light in reach.
[2021-02-04 07:36] VITALS: PULSE 72; RESP 17; O2SAT 93
[2021-02-04] MEDS: sertraline 100 mg Tablet PO (08:33)
[2021-02-04] MEDS: levothyroxine 200 mcg Tablet PO (08:33)
[2021-02-04] MEDS: metoprolol tartrate 50 mg Tablet PO (08:33)
[2021-02-04] MEDS: cyanocobalamin 1,000 mcg Tablet 1000 MCG PO (08:34)
[2021-02-04] MEDS: lisinopril 5 mg Tablet PO (08:34)
[2021-02-04] MEDS: isosorbide mononitrate ER 30 mg Tablet PO (08:34)
[2021-02-04] MEDS: potassium chloride ER 20 mEq Tablet PO (08:34)
[2021-02-04] MEDS: FUROsemide 40 mg Tablet PO (08:34)
[2021-02-04] MEDS: montelukast sodium 10 mg Tablet PO (08:34)
[2021-02-04] MEDS: gabapentin 100 mg Capsule PO (08:34)
[2021-02-04] MEDS: atorvastatin 40 mg Tablet 20 MG PO (08:35)
[2021-02-04] MEDS: aspirin 81 mg EC Tablet PO (08:35)
[2021-02-04] MEDS: amlodipine 5 mg Tablet PO (08:35)
[2021-02-04] MEDS: pantoprazole DR 40 mg Tablet PO (08:35)
[2021-02-04] MEDS: cholecalciferol (vitamin D3) 1,000 unit Tablet 1000 UNIT PO (08:35)
[2021-02-04] MEDS: fluticasone nasal spray 16gm Btl 1 SPRAY INTRANASAL (08:36)
[2021-02-04] MEDS: TRAMadol 50 mg Tablet PO (10:53)
[2021-02-04 11:00] VITALS: BP 155/86; PULSE 79; RESP 20; TEMP 36.9; O2SAT 92
--- NOTE | 2021-02-04 11:25 | P.DS_ITS ---
Discharge Providers Date of Admission: 02/03/21 16:33 Date of Discharge: February 04, 2021 Attending Provider at Admission: Juan Antonio Mcdaniel MD Attending Provider at Discharge: Juan Antonio Mcdaniel MD Primary Care Provider: Polly Madison MD Diagnoses at Discharge Discharge Diagnosis (1) CAD (coronary artery disease): Status: Acute Qualifiers: Coronary Disease-Associated Artery/Lesion type: [place] artery [place] vs. transplanted heart: [place] heart Associated angina: with unstable angina Qualified Code(s): I25.110 - Atherosclerotic heart disease of [place] coronary artery with unstable angina pectoris (2) Shortness of breath: Status: Acute (3) HTN (hypertension): Status: Acute Qualifiers: Hypertension type: essential hypertension Qualified Code(s): I10 - Essential (primary) hypertension Reason for Visit Reason for Visit: left and right heart cath Hospital Course Hospital Course 70-year-old female past medical history significant for diabetes mellitus hypertension hyperlipidemia and nonobstructive coronary artery disease for worsening of shortness of breath chest pain and for preop clearance before the knee surgery as patient declined stress test categorically and since her condition got worsened despite of optimization of medicine underwent left and right heart catheterization for chest pressure and unknown etiology for shortness of breath. She was noted to have nonobstructive disease in mild to moderate range in proximal LAD without significant stenosis circumflex and RCA did not show significant disease left main was also free of disease. Right heart catheterization showed moderately elevated wedge pressure apart from that pulmonary pressures were within normal limit. Patient per post-cath care stayed overnight since it was late in the night when her sheath was pulled. She is doing fine from a cardiovascular perspective I have increased amlodipine 5 mg twice a day to control her blood pressure better. Isosorbide mononitrate stays at 30 mg twice a day. Patient has been advised to keep log of blood pressure pulse twice a day and send it to us. Patient will be clear to go for knee surgery under acceptable risk for anesthesia and surgery. She is being discharged home. Right groin looks good without hematoma or bruising. Physical Exam Narrative: EXAM NARRATIVE: GENERAL: Patient is alert, awake and oriented x3. NECK: No jugular vein distension. HEENT: No cyanosis. No icterus. No pallor. HEART: Regular S1 and S2. No murmur, rub or gallop. LUNGS: Clear to auscultate bilaterally. ABDOMEN: Soft, nontender and nondistended. Positive bowel sounds. No guarding, rebound or tenderness. CENTRAL NERVOUS SYSTEM: Grossly nonfocal. EXTREMITIES: Lower extremities without edema bilaterally. Right groin without bruise hematoma, Discharge Data Data Completed and Pending: Pending at discharge Category Date Time Status EQUITY RESEARCH ANALYST request for service Routin e Exams 02/03/21 13:30 Taken Labs from last 24 hours 02/04/21 02/03/21 06:43 20:36 POC Glucose 121 H 111 H Vitals: Last Vital Signs Temp 98.5 F 02/04/21 11:00 Pulse 79 02/04/21 11:00 Resp 20 H 02/04/21 11:00 BP 155/86 02/04/21 11:00 Pulse Ox 92 02/04/21 11:00 Discharge Plan Discharge Patient Disposition: Home Condition: Stable Prescriptions: Continued cholecalciferol (vitamin D3) 25 mcg (1,000 unit) capsule 25 mcg PO DAILY RF: 0 melatonin 10 mg tablet 20 mg PO DAILY RF: 0 tramadol 50 mg tablet 50 mg PO Q6H PRN (Reason: pain) Qty: 30 RF: 0 gabapentin 100 mg capsule 100 mg PO TID RF: 0 furosemide [Lasix] 20 mg tablet 20 mg PO DIRECTED RF: 0 aspirin [Adult Low Dose Aspirin] 81 mg tablet,delayed release (DR/EC) 81 mg PO DAILY RF: 0 sertraline 100 mg tablet 100 mg PO DAILY RF: 0 meclizine 25 mg tablet 25 mg PO DAILY PRN (Reason: DIZZINESS) RF: 0 atorvastatin 20 mg tablet 20 mg PO DAILY RF: 0 isosorbide mononitrate 30 mg tablet extended release 24 hr 30 mg PO BID RF: 0 levothyroxine 200 mcg capsule 200 mcg PO DAILY RF: 0 trazodone 100 mg tablet 100 mg PO DAILY PRN (Reason: Pain) RF: 0 pantoprazole 40 mg tablet,delayed release (DR/EC) 40 mg PO DAILY RF: 0 diclofenac sodium 75 mg tablet,delayed release (DR/EC) 75 mg PO BID RF: 0 mecobalamin (vitamin B12) 1,000 mcg tablet,disintegrating 1,000 mcg PO DAILY RF: 0 montelukast 10 mg tablet 10 mg PO DAILY RF: 0 albuterol sulfate [ProAir HFA] 90 mcg/actuation HFA aerosol inhaler 2 puff INHALATION Q6H PRN (Reason: WHEEZING) RF: 0 fluticasone propionate [Flonase Allergy Relief] 50 mcg/actuation spray,suspension 1 spray INTRANASAL DAILY RF: 0 acetaminophen [Tylenol Arthritis Pain] 650 mg tablet extended release 650 mg PO Q12H PRN (Reason: PAIN) RF: 0 metoprolol tartrate 100 mg tablet 50 mg PO BID RF: 0 potassium chloride 20 mEq tablet extended release 20 meq PO DAILY RF: 0 nitroglycerin [Nitrostat] 0.4 mg tablet, sublingual 0.4 mg SUBLINGUAL Q5M PRN (Reason: chest pain) 30 Days Qty: 25 RF: 3 lisinopril 5 mg tablet 5 mg PO BID Qty: 180 RF: 3 hydrocodone-acetaminophen [[place]] 5-325 mg tablet 1 tab PO Q4H PRN (Reason: pain) 7 Days Qty: 30 RF: 0 Trulicity 0.75 mg/0.5 mL Pen Injector 0.75 mg SUBCUT DIRECTED RF: 0 Changed amlodipine 5 mg tablet 5 mg PO BID Qty: 60 RF: 5 Discharge Orders: Discharge Order (Routine); Ordered 02/04/21 Ordered By: Juan Antonio Mcdaniel Discharge Diet: Diabetic, Low Salt and Low Fat Discharge Activity: Increase activity as tolerated Patient Instructions: Left Heart Catheterization (DC), Right Heart Catheterization (DC), Post Angiogram Home Care Instructions Activity Restrictions/Additional Instructions: No lifting of more than a gallon of milk for the next 2 days. Follow-up with Dr. Arias in 3 months. Keep a log of blood pressure and pulse for next 2 weeks and send it to Dr. Mcdaniel's office. Discharge Attestations Time Spent in Discharge Care*: less than 30 min Specific Discharge Activities: educating patient Quality Metrics Clinical Quality Measures During this hospital stay, did patient experience: None Coding Level of Care Code Established Pt Acute Chg FW DC note Patient Type Established History Detailed Exam Expanded Problem Focused Medical Decision Making Moderate Complexity Diagnoses CAD (coronary artery disease) I25.110 Coronary Disease-Associated Artery/Lesion type: [place] artery [place] vs. transplanted heart: [place] heart Associated angina: with unstable angina Shortness of breath R06.02 HTN (hypertension) I10 Hypertension type: essential hypertension
[2021-02-04 12:21] VITALS: BP 155/86; PULSE 79; RESP 20; TEMP 36.9; O2SAT 92
--- NOTE | 2021-02-04 12:42 | PC.NURSE ---
Pt discharged home. PTs IV removed no redness or swelling noted. Pt discharge instructions given along with prescriptions and follow up appointments. Pt had no c/o pain or discomfort at the time of discharge. Pt transferred out via wheelchair accompanied by staff.
== END 2021-02-04 12:41 | disposition home or self-care (01) ==
LOC: CCL 12:25 → CSU 02-04 11:25
PROVIDERS: PCP Family Medicine; Visit Provider Internal Medicine Cardiovascular Disease
DX: I25.110 Atherosclerotic heart disease of native coronary artery with unstable angina pectoris (principal); R06.02 Shortness of breath; I10 Essential (primary) hypertension; Z79.82 Long term (current) use of aspirin; E11.9 Type 2 diabetes mellitus without complications; Z87.891 Personal history of nicotine dependence
CPT/HCPCS: 36415; 36416; 80048; 82962; 85025; 85610; 93456; C1751; C1769; C1887; C1894; J1644; J2250; J3010; J7030; Q0163; Q9967

== ENCOUNTER → 2021-02-10 11:00 | Outpatient (BNVA) | payer MEDICARE, SELFPAY | PROVIDERS: PCP Family Medicine; Visit Provider Nurse Practitioner Family | DX: I10 Essential (primary) hypertension (principal); R06.02 Shortness of breath; Z09 Encounter for follow-up examination after completed treatment for conditions other than malignant neoplasm; I25.110 Atherosclerotic heart disease of native coronary artery with unstable angina pectoris | CPT/HCPCS: 80048 ==

== ENCOUNTER 2021-02-23 08:07 | Day surgery (SDC) | payer MEDICARE, SELFPAY ==
[2021-02-22 14:21] VITALS: BMI 39.4
[2021-02-23] VITALS (15 sets, daily range): BP systolic 132–171; BP diastolic 79–99; PULSE 68–86; RESP 12–20; TEMP 36.1–36.6; O2SAT 93–98
--- NOTE | 2021-02-23 09:04 | ANES.PREANE2 ---
Pre-Anesthetic Assessment Pre-Anesthetic Assessment: Height/Weight: Height 1.63 m Weight 104.326 kg Temp Pulse Resp BP Pulse Ox 97.8 F 73 18 140/79 94 02/23/21 08:43 02/23/21 08:43 02/23/21 08:43 02/23/21 08:43 02/23/21 08:43 Preop Diagnosis: Lateral patellar instability left knee Proposed Procedure: Operation Date: 02/23/21 10:05 Proposed Procedures p Proximal realigment of left patella with poss allograft reconstruction 05321 M25.362(Left) - Papito Evans MD Familial anesthetic complications: None Was Beta Goldy taken within 24 hours: N/A Was Clonidine taken within 24 hours: N/A Last intake: Intake Last Liquid Date 02/23/21 Last Liquid Time 06:00 Last Solid Date 02/22/21 Last Solid Time 18:00 Social: Social History: No alcohol and No tobacco Exam: Pre-Anes Outpt Exam: alert, oriented x 3, clear to auscultation bilaterally and regular rate & rhythm Airway: Cervical ROM: WNL MP: 4 Dentition: Other (loose) Pulmonary: Pulmonary: Asthma and COPD CV/HEM: CV/HEM: CAD, CHF and HTN Metabolic: Metabolic: DM, Hyperlipidemia and Thyroid Anesthetic Plan: ASA status: 4 Anesthesia: General Risk of > 500 ml blood loss (7ml/kg in children): No PFSH Anesthesia PFSH: Medical History Anxiety and depression CAD (coronary artery disease) Diabetes mellitus GERD (gastroesophageal reflux disease) HTN (hypertension) CARLITO (obstructive sleep apnea) Patellar instability of left knee Surgical History S/P cholecystectomy S/P coronary angiogram S/P hysterectomy S/P knee replacement Status post left knee replacement Family History Other Cancer Diabetes Social History Smoking and tobacco status: former smoker Alcohol intake: never Data Anesthesia Cardiac Studies: No Data to Display
[2021-02-23 09:10] LABS: Glucose Point of Care 94 mg/dL (70-110)
[2021-02-23] MEDS: sodium chloride 0.9% 1,000 ML 30 ML IV (09:20)
[2021-02-23 09:58] LABS: Glucose Point of Care 122 mg/dL (70-110)
[2021-02-23] MEDS: ondansetron 2 mg/ML SDV 2 mL 4 MG IVP (10:03)
--- NOTE | 2021-02-23 10:45 | W.PM.OPSUD ---
Surgery/Procedure H&P Update DATE OF PROCEDURE: February 23, 2021 DATE H&P PERFORMED: 02/13/21 H&P UPDATE INFORMATION: I have reviewed H&P completed within last 30 days, I have examined patient prior to procedure and No changes to prior documentation PREOP DIAGNOSIS: Lateral patellar instability left knee PLANNED PROCEDURE: Operation Date: 02/23/21 10:05 Proposed Procedures p Proximal realigment of left patella with poss allograft reconstruction 49373 M25.362(Left) - Papito Evans MD
--- NOTE | 2021-02-23 12:17 | PM.OP ---
Operative Report Date of procedure: February 23, 2021 Pre-op Diagnosis: Lateral patellar instability left knee Post-op diagnosis: same Post-op Findings: Same Pathology: none sent Surgeon: Papito Evans Anesthesia: General Estimated blood loss (mL): 25 Tourniquet time (min): 24 Findings: Patient had attenuation of her medial retinaculum and vastus medialis oblique is insertion. She had good quality tissue along the medial border of her patella and medial along her retinaculum to facilitate a primary repair Condition: stable Disposition: PACU Procedure: The patient was taken to the operating room and given a general anesthesia. She is prepped and draped in the supine position with a tourniquet on the left thigh. Timeout was performed. The tourniquet was inflated to 325 mmHg. A 8 cm long incision was made from a point superior to the patella distally and dissection carried down to the extensor retinaculum. The patella was identified and a very thin attenuated retinaculum identified medially. The subcutaneous tissues were elevated off that retinaculum over of a distance of approximately 5 cm medially. A medial parapatellar incision was made beginning 2 cm proximal to the patella and extending distally along the medial border of the patella and medial patellar tendon. Using 0 Ethibond suture the medial cuff of tissue adjacent to the patella, vastus intermedius, and patellar tendon was sutured to the more medial retinaculum realigning the patella in the trochlear groove. The free medial flap of retinaculum was then attached to the vastus intermedius, lateral patellar periosteum, and patellar tendon with a running 0 Stratafix suture further reinforcing the repair. The wound was irrigated with saline. Deep tissue was closed with 2-0 Vicryl. The skin was closed with a running 4-0 Stratafix suture. A Prineo skin dressing was applied. 0 dressings were applied the patient was placed in a knee immobilizer.
[2021-02-23] MEDS: morphine 4 mg/mL SDV 1 mL 2 MG IVP ×2 (12:21→12:23)
[2021-02-23] MEDS: HYDROmorphone 1 mg/mL INJ 1 mL 0.5 MG IVP ×2 (12:31→12:41)
--- NOTE | 2021-02-23 12:45 | SUR.PHASEI ---
1245 PT HAS SENSATION/MOVEMENT TO L. FOOT, PEDAL PULSE PALPATED, CAP REFILL <3 SEC
--- NOTE | 2021-02-23 13:31 | ANE.PACU2 ---
Inpatient post-anesthesia follow up: Airway intact: Yes Vital signs: Temperature 97.8 F Pulse Rate 76 Respiratory Rate 18 Blood Pressure 161/92 Pulse Oximetry 94 Oxygen Delivery Me thod Room Air Oxygen Flow Rate 8 Fraction of Inspir ed Oxygen Hydration adequate: Yes Nausea and vomiting: No Pain level: 2 Mental status: Baseline
== END 2021-02-23 13:41 | disposition home or self-care (01) ==
PROVIDERS: PCP Family Medicine; Visit Provider Orthopaedic Surgery
PROC: (CPT 27427; principal; 2021-02-23 09:55)
DX: M23.52 Chronic instability of knee, left knee (principal); J44.9 Chronic obstructive pulmonary disease, unspecified; I25.10 Atherosclerotic heart disease of native coronary artery without angina pectoris; I11.0 Hypertensive heart disease with heart failure; I50.9 Heart failure, unspecified; E11.9 Type 2 diabetes mellitus without complications; E78.5 Hyperlipidemia, unspecified; F41.9 Anxiety disorder, unspecified; F32.9 Major depressive disorder, single episode, unspecified; K21.9 Gastro-esophageal reflux disease without esophagitis; G47.33 Obstructive sleep apnea (adult) (pediatric); Z87.891 Personal history of nicotine dependence; Z83.3 Family history of diabetes mellitus
CPT/HCPCS: 27422; 36416; 82962; J0690; J1170; J1580; J2270; J2405; J2704; J3010; J3490; J7030

== ENCOUNTER 2021-03-07 15:04 | Outpatient (CLI) | payer MEDICARE, SELFPAY | END 2021-03-07 15:05 | disposition home or self-care (01) | LOC: SPT 15:05 | PROVIDERS: PCP Family Medicine; Visit Provider Orthopaedic Surgery | DX: Z48.89 Encounter for other specified surgical aftercare (principal) | CPT/HCPCS: L1830 ==

== ENCOUNTER → 2021-03-13 15:53 | Outpatient (BNVA) | payer MEDICARE, SELFPAY | PROVIDERS: PCP Family Medicine; Referring Provider Nurse Practitioner Family; Visit Provider Internal Medicine Critical Care Medicine | DX: I25.110 Atherosclerotic heart disease of native coronary artery with unstable angina pectoris (principal); R06.02 Shortness of breath; R05 Cough | CPT/HCPCS: 82785; 86003 ==

== ENCOUNTER → 2021-03-31 11:11 | Outpatient (BNVA) | payer MEDICARE, SELFPAY | PROVIDERS: PCP Family Medicine; Visit Provider Internal Medicine Critical Care Medicine | DX: Z20.822 Contact with and (suspected) exposure to COVID-19 (principal) | CPT/HCPCS: 87635 ==

== ENCOUNTER 2021-04-05 11:30 | Outpatient (CLI) | payer MEDICARE, SELFPAY ==
--- NOTE | 2021-04-05 13:00 | PFTS_ITS ---
Date of Study:04/05/21 Date of Dictation: MECHANICS: Forced vital capacity (FVC) is minimally reduced. Forced expiratory volume in one second (FEV1) is normal. FEV1/FVC is normal. FLOW VOLUME LOOP: Normal. LUNG VOLUMES: Total lung capacity (TLC) is normal. Residual volume (RV) is normal. DIFFUSING CAPACITY FOR CARBON MONOXIDE: Mildly reduced. INTERPRETATION: The postbronchodilator spirometry is essentially normal. There is no significant postbronchodilator response. The lung volumes are normal. Gas exchange (DLCO) is minimally reduced. MTDD
== END 2021-04-05 11:31 | disposition home or self-care (01) ==
LOC: RT 11:32
PROVIDERS: PCP Nurse Practitioner Family; Visit Provider Internal Medicine Critical Care Medicine
DX: R06.02 Shortness of breath (principal)
CPT/HCPCS: J7611

== ENCOUNTER → 2021-04-18 10:30 | Outpatient (BNVA) | payer MEDICARE, SELFPAY | PROVIDERS: PCP Nurse Practitioner Family; Visit Provider Orthopaedic Surgery | DX: M25.362 Other instability, left knee (principal) | CPT/HCPCS: 87635 ==

== ENCOUNTER 2021-04-20 05:26 | Day surgery (SDC) | payer MEDICARE, SELFPAY ==
[2021-04-20] VITALS (10 sets, daily range): BP systolic 119–167; BP diastolic 69–90; PULSE 68–93; RESP 14–20; TEMP 36.2–36.9; O2SAT 94–97
--- NOTE | 2021-04-20 | SCC_ITS ---
Procedure Done: Femoral ligament reconstruction left knee 30.8 seconds of fluoroscopic guidance, for a cumulative dose of 2.38 mGy, was provided to Dr. Evans by the radiology department. C-arm images of the LEFT knee were saved for the patient's permanent record. [facility]
[2021-04-20 06:14] LABS: Glucose Point of Care 108 mg/dL (70-110)
[2021-04-20] MEDS: sodium chloride 0.9% 1,000 ML 30 ML IV (06:24)
[2021-04-20] MEDS: acetaminophen 500 mg Tablet 1000 MG PO (06:24)
[2021-04-20] MEDS: oxyCODONE 20 mg ER (12 HR) Tablet PO (06:24)
[2021-04-20 06:55] LABS: Anion Gap 14.1 (5-19); Blood Urea Nitrogen 19 mg/dL (8-23); Calcium 9.3 mg/dL (8.5-10.5); Carbon Dioxide 24 mmol/L (22-29); Chloride 105 mmol/L (98-107); Glucose 116 mg/dL (65-115); Osmolality Calculated 291 mOsm/kg (285-295); Potassium 4.1 mmol/L (3.5-5.1); Sodium 139 mmol/L (136-145)
--- NOTE | 2021-04-20 06:55 | ANES.PREANE2 ---
Pre-Anesthetic Assessment Pre-Anesthetic Assessment: Height/Weight: Height 1.65 m Temp Pulse Resp BP Pulse Ox 97.7 F 71 18 167/90 94 04/20/21 06:06 04/20/21 06:06 04/20/21 06:06 04/20/21 06:06 04/20/21 06:06 Preop Diagnosis: Left patellar instability Proposed Procedure: Operation Date: 04/20/21 07:00 Proposed Procedures p Patellofemoral Ligament Reconstruction 40507 M25.632(Left) - Papito Evans MD Was Beta Goldy taken within 24 hours: Yes Was Clonidine taken within 24 hours: N/A Last intake: Intake Last Liquid Date 04/19/21 Last Liquid Time 20:00 Last Solid Date 04/19/21 Last Solid Time 18:00 Social: Social History: No alcohol and No tobacco Exam: Pre-Anes Outpt Exam: alert, oriented x 3, clear to auscultation bilaterally and regular rate & rhythm Airway: Submandibular: WNL Cervical ROM: WNL MP: 2 Dentition: Chipped and Loose Additional comments: Poor dentition, missing several, some loose Pulmonary: Pulmonary: COPD CV/HEM: CV/HEM: CAD and HTN GI: GI: GERD Metabolic: Metabolic: DM and Morbid obesity Anesthetic Plan: ASA status: 3 Anesthesia: General Risk of > 500 ml blood loss (7ml/kg in children): No Meds/Allergies Current Medications: Current Medications Generic Name Dose Route Start Last Admin Trade Name Freq PRN Reason Stop Dose Admin Sodium Chloride 1,000 mls @ 30 ml s/hr 04/20/21 05:45 04/20/21 06:24 Sodium Chloride 0.9% IV 04/21/21 05:44 30 mls/hr .Q24H MELINDA Administration PFSH Anesthesia PFSH: Medical History Anxiety and depression CAD (coronary artery disease) Diabetes mellitus GERD (gastroesophageal reflux disease) HTN (hypertension) CARLITO (obstructive sleep apnea) Surgical History S/P cholecystectomy S/P coronary angiogram S/P hysterectomy S/P knee replacement Status post left knee replacement Family History Other Cancer Diabetes Social History Smoking and tobacco status: former smoker Quit status (tobacco): has quit using tobacco Second hand smoke exposure: No Smoking risk assessment/counseling performed?: Yes Alcohol intake: never Lives independently: Yes Household members: children Housing: Manufactured/Mobile home Marital status: / service: No Current occupational status: retired Pets and animals: Yes History of recent travel: No Current gender identity: Female Data Anesthesia CBC & Chem 7: 04/20/21 06:25 Other Labs: Laboratory Results - last 48 hr 04/20/21 06:11 POC Glucose 108 Cardiac Studies: No Data to Display
--- NOTE | 2021-04-20 07:00 | W.PM.OPSUD ---
Surgery/Procedure H&P Update DATE OF PROCEDURE: April 20, 2021 DATE H&P PERFORMED: 04/04/21 PREOP DIAGNOSIS: Left patellar instability PLANNED PROCEDURE: Operation Date: 04/20/21 07:00 Proposed Procedures p Patellofemoral Ligament Reconstruction 57439 M25.632(Left) - Papito Evans MD
--- NOTE | 2021-04-20 09:03 | P.OP_ITS ---
Operative Report Date of procedure: April 20, 2021 Pre-op Diagnosis: Left patellar instability Post-op diagnosis: same Post-op Findings: Same Procedure Done: Femoral ligament reconstruction left knee Implants: Kaur [employer] Nephew Biosure PK 8 x 26 mm screw Pathology: none sent Anesthesia: General Estimated blood loss (mL): 50 Tourniquet time (min): 77 Findings: The patient had significant attenuation of her medial retinaculum at its insertion on the medial patella. She had a tight lateral retinaculum. This resulted in a clear lateral instability of the patella throughout most Procedure: The patient was taken to the operating room and given 2 g of Ancef and a general anesthesia. She was prepped and draped in the supine position with a tourniquet on the left thigh. The tourniquet was inflated to 300 mmHg. Initially the anterior incision was opened up along its course and the extensor retinaculum was exposed. Marked attenuation was seen in the retinaculum medially and the poor quality tissue was excised removing a strip of adjacent to the patella approximately 2 cm wide before good quality tendon was encountered. The split was carried up to a point approximately 3 cm above the patella. The lateral retinaculum was not felt and found to be tight. From the extra- articular lateral aspect dense bands of lateral retinaculum were released from the border of the inferior patella proximally allowing the patella to be more easily displaced medially. A Kaur [employer] Nephew Q fix anchor was attempted on 2 occasions with poor fixation. Decision was made to proceed with fixation through a tunnel and patella. A Kaur [employer] Nephew 3.2 mm guidepin was placed from the midpoint the patella exiting proximally and anteriorly. Over this was passed a Endobutton reamer. An Arthrex speed graft was then passed through the tunnel exiting anteriorly. It was then brought through the scar tissue medially with a hemostat. The remaining dense medial retinaculum was too thick to allow the graft to be passed extra articularly and the decision was made to reconstruct the ligament intra- articularly. Utilizing fluoroscopy Schottle's point was identified the 3.2 mm guidepin driven from skeletal spine proximally and anteriorly exiting the femur. Over the guidepin the 4.5 mm Endobutton reamer was placed. A 9 mm tunnel was made to a depth of approximately 40 mm. Guidepin was used to shuttle the graft sutures through the tunnel and tension applied to the sutures tensioning the graft. The patella was realigned proximal to the trochlear groove with normal tracking noted throughout range of motion. The Biosure PK screw was then passed over its guidewire tightly securing the graft in the femur. The medial retinaculum was then brought up anteriorly over the cuff of tissue on the left adherent to the patella and secured in a pants over vest fashion with Ethibond suture. Sutures were used to incorporate the allograft in to the medial retinaculum. The knee was again brought through full range of motion with normal patellar tracking noted. The tourniquet was deflated. Deep tissues were closed with 2-0 Vicryl suture. Fatty tissues were closed with a running 2-0 StrataFix suture and the skin with a running 4-0 Stratafix. A Prineo dressing was applied. A compression dressing was applied and the patient was placed in a knee immobilizer.
--- NOTE | 2021-04-20 09:27 | XR_ITS ---
WS: [id number] Left knee, C-arm fluoroscopy, AP view, 04/20/2021 Clinical Data: OR PICS Comparison: Left knee, 01/16/2021. Findings: There is a radiopaque linear device which ends over the medial superior aspect of the femoral portion of the left knee arthroplasty. XR/XR knee LT 1-2V [id number] Impression: Insertion of radiopaque item into left knee. Kellgren-Doe Classification: NA
[2021-04-20] MEDS: fentaNYL 50 mcg/mL INJ 2mL IVP (09:37)
[2021-04-20] MEDS: HYDROcodone-acetaminophen 5-325 mg Tablet 1 TAB PO (10:29)
[2021-04-20] MEDS: ondansetron 2 mg/ML SDV 2 mL 4 MG IVP (10:39)
--- NOTE | 2021-04-20 14:53 | ANE.PACU2 ---
Inpatient post-anesthesia follow up: Airway intact: Yes Vital signs: Temperature 98.4 F Pulse Rate 74 Respiratory Rate 18 Blood Pressure 147/85 Pulse Oximetry 96 Oxygen Delivery Me thod Nasal Cannula Oxygen Flow Rate 2 Fraction of Inspir ed Oxygen Hydration adequate: Yes Nausea and vomiting: No Pain level: 2 Mental status: Baseline
== END 2021-04-20 11:35 | disposition home or self-care (01) ==
PROVIDERS: Anesthesiology; PCP Nurse Practitioner Family; Visit Provider Orthopaedic Surgery
PROC: (CPT 27427; principal; 2021-04-20 07:00)
DX: M25.362 Other instability, left knee (principal); J44.9 Chronic obstructive pulmonary disease, unspecified; I25.10 Atherosclerotic heart disease of native coronary artery without angina pectoris; I10 Essential (primary) hypertension; K21.9 Gastro-esophageal reflux disease without esophagitis; E66.01 Morbid (severe) obesity due to excess calories; E11.9 Type 2 diabetes mellitus without complications; G47.30 Sleep apnea, unspecified; Z87.891 Personal history of nicotine dependence
CPT/HCPCS: 27427; 36415; 36416; 73560; 76000; 80048; 82962; C1713; J0690; J1100; J1580; J2405; J2704; J3010; J7030

== ENCOUNTER 2021-09-29 08:16 | Outpatient (CLI) | payer MEDICARE, SELFPAY ==
[2021-09-29 08:30] VITALS: BMI 35.7
--- NOTE | 2021-09-29 08:31 | ECG_ITS ---
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 Interpretive Statements NAME OF STUDY: LEXISCAN SESTAMIBI STRESS TEST INDICATION: Angina PROCEDURE: At the baseline, the blood pressure was 131/74 mmHg, oxygen saturation 94% with a heart rate of 67 bpm. The electrocardiogram showed sinus rhythm, normal axis with artifact. T wave inversion in V2 to V6 lead III and aVF. The Lexiscan was infused over a period of 20 seconds. A total of 0.4 milligrams of Lexiscan was infused. The stress phase was continued for a total of 5 minutes. Heart rate at the end of the stress phase was 87 bpm, oxygen saturation 94% with a blood pressure of 140/70 mmHg. The EKG at the peak infusion revealed sinus rhythm with no significant ST-T wave changes. The study was terminated to protocol completion. Sestamibi was injected 20 seconds after the Lexiscan infusion. Blood pressure at the end of the recovery phase was 134/68 mmHg, oxygen saturation 93% with a heart rate of 84 beats per minute. CONCLUSION: 1. No significant EKG changes with the LexiScan infusion. 2. No LexiScan induced chest pain or cardiac arrhythmia. 3. Normal blood pressure and heart rate response. 4. Sestamibi/sestamibi perfusion scan pending; see separate report. Electronically Signed On 10-02-2021 18:19:10 MINILAB OPERATOR by Sabrina Reyes M.D. [email or web address]
--- NOTE | 2021-09-29 08:31 | NMCV_ITS ---
NM joellen perf SPECT r/s* [id number] Celsa Young Age: 71 Gender: F : 1950 Exam Date: 09/29/2021 08:31 Ordering Phys: Geetha Munguia Technologist: MICHAEL Sewell Exam Location: [facility] Indications: HEART DISEASE STRESS TEST [facility] IMAGE PROTOCOL Rest/Stress 1 Lexiscan Day Radiopharmaceutical Dose (mCi) Administration Site Administered by Rest: Tc-99m 10.7 IV MICHAEL Sewell Sestamibi Stress:Tc-99m 32.7 IV MICHAEL Hernandez Sestamibi Rest: 29-Sep-2021 60 Discovery 630 Stress: 29-Sep-2021 30 Discovery 630 0.4mg Lexiscan. Supine position only as patient was unable to lay prone. SPECT RESULTS Technical Quality: Good Raw Data Analysis: Normal Image Corrections: No attenuation or motion correction applied Summed Stress Score: 1 Summed Rest Score: 0 Summed Difference Score: 1 PERFUSION FINDINGS Small sized perfusion abnormality of mild severity of apical anterior and apical lateral wall on stress images. FUNCTIONAL RESULTS (calculated via Gated SPECT) Stress Image LV EF (%): 76 Stress EDV (mL):90 TID: 1.02 Stress ESV (mL):22 FUNCTIONAL FINDINGS: The left ventricle is normal in size. Transient Ischemia Dilatation of 1. There is normal left ventricular systolic function. The left ventricular ejection fraction is normal with a value of 76%. There is normal left ventricular wall thickening with no regional wall motion abnormality. IMPRESSIONS 1. Small sized perfusion abnormality of mild severity of apical anterior and apical lateral cali on supine stress images 2. This likely represents breast attenuation artifact, in absence of prone imaging and no regional wall motion abnormality 3. Overall left ventricular systolic function is normal without regional wall motion abnormalities. 4. The left ventricular ejection fraction is normal with a value of 76%. 5. EKG portion of the study will be reported separately. Sabrina Reyes MD (Electronically Signed) Final Date: 03 October 2021 19:31 S
[2021-09-29] MEDS: regadenoson 0.4 Mg/5 ml Syringe IVP (10:15)
[2021-09-29 10:22] VITALS: BP 134/68; PULSE 83
== END 2021-09-29 08:17 | disposition home or self-care (01) ==
LOC: CDL 08:17
PROVIDERS: PCP Nurse Practitioner Family; Visit Provider Nurse Practitioner Family
DX: I25.110 Atherosclerotic heart disease of native coronary artery with unstable angina pectoris (principal); R06.02 Shortness of breath; E11.9 Type 2 diabetes mellitus without complications
CPT/HCPCS: 78452; 93017; A9500; J2785

== ENCOUNTER 2021-12-12 12:45 | Outpatient (CLI) | payer MEDICARE, SELFPAY ==
--- NOTE | 2021-12-12 13:02 | USCV_ITS ---
Celsa Young Age: 71 Gender: F : 1950 Exam Date: 12/12/2021 13:27 Ordering Phys: Magda Rothman Technologist: TACOS [place] [facility] [place]: COPD, elevated Natriuretic Peptide level, No hx cardiac intervention. BP: 154 / 76 HR: 59 Rhythm: Sinus Technical Quality: Adequate MEASUREMENTS (Male / Female) Normal Values 2D ECHO LV Diastolic Diameter PLAX 3.8 cm 4.2 - 5.9 / 3.9 - 5.3 cm LV Systolic Diameter PLAX 2.3 cm IVS Diastolic Thickness 1.5 cm 0.6 - 1.0 / 0.6 - 0.9 cm IVS Systolic Thickness 1.9 cm LVPW Diastolic Thickness 1.2 cm 0.6 - 1.0 / 0.6 - 0.9 cm LVPW Systolic Thickness 1.6 cm LVOT Diameter 1.9 cm LV Ejection Fraction 2D Teich 71.0 % LV Ejection Fraction MOD 2C 67.9 % LV Ejection Fraction 2C AL 70.2 % LA Diameter 4.5 cm LA Width 4.1 cm LA Height 6.6 cm RA Width 4.0 cm RA Height 4.6 cm Aorta at Sinotubular Diameter 2.9 cm M-MODE Aortic Annulus Diameter 3.1 cm LA Ao Ratio MM 1.4 MV E Point Septal Separation 0.4 cm DOPPLER AV Peak Velocity 116.0 cm/s LVOT Peak Velocity 97.0 cm/s AV Area Cont Eq vti 2.5 cm squared AV Area Cont Eq pk 2.4 cm squared MV Area PHT 4.1 cm squared Mitral E to A Ratio 1.0 MV E' Velocity 43.5 cm/s Mitral E to MV E' Ratio 11.4 Mitral E to LV E' Lateral Ratio 11.7 Mitral E to LV E' Septal Ratio 11.2 TR Peak Velocity 274.5 cm/s TR Peak Gradient 30.1 mmHg TV Peak E Velocity 34.0 cm/s Right Atrial Pressure 10.0 mmHg Pulmonary Artery Systolic Pressu 40.1 mmHg PV Peak Velocity 84.0 cm/s RV Acceleration Time 0.1 s RV Ejection Time 0.4 s RV AcT/ET 0.3 FINDINGS Left Ventricle Normal left ventricular size and systolic function, EF 69 %. No regional wall motion abnormalities. Mild left ventricular hypertrophy. Grade I/IV diastolic dysfunction (abnormal relaxation filling pattern), normal to mildly elevated filling pressures. Right Ventricle Normal right ventricular size and systolic function. Right Atrium Mildly increased right atrial size. Left Atrium Mildly increased left atrial size. Mitral Valve Trace mitral valve regurgitation. Aortic Valve Structurally normal aortic valve without significant sclerosis or stenosis. There is no aortic regurgitation. Tricuspid Valve Uajo-zo-ccfrmevm tricuspid valve regurgitation. Estimated pulmonary artery peak systolic pressure of 40 mmHg Pulmonic Valve Mild pulmonary valve regurgitation. Pericardium No pericardial effusion. Aorta Normal ascending aorta dimension. CONCLUSIONS Normal left ventricular size and systolic function, EF 69 %. No regional wall motion abnormalities. Mild left ventricular hypertrophy. Grade I/IV diastolic dysfunction (abnormal relaxation filling pattern), normal to mildly elevated filling pressures. Trace mitral valve regurgitation. Jmtl-ah-zrskhcmy tricuspid valve regurgitation. Estimated pulmonary artery peak systolic pressure of 40 mmHg. There is no pericardial effusion. There are no intracardiac masses. Compared to the study from 05/18/2019, the mild biatrial enlargement appears to be new Dr Sadaf Yang MD FAC (Electronically Signed) Final Date: 13 December 2021 09:00 S
== END 2021-12-12 12:46 | disposition home or self-care (01) ==
LOC: RAD 12:48
PROVIDERS: PCP Nurse Practitioner Family; Visit Provider Nurse Practitioner Family
DX: R79.89 Other specified abnormal findings of blood chemistry (principal); J44.9 Chronic obstructive pulmonary disease, unspecified; I08.1 Rheumatic disorders of both mitral and tricuspid valves
CPT/HCPCS: 93306

== ENCOUNTER 2022-05-24 14:15 | Outpatient (CLI) | payer MEDICARE, SELFPAY ==
--- NOTE | 2022-05-24 14:20 | MM_ITS ---
WS: [id number] BILATERAL 3D TOMOSYNTHESIS DIGITAL SCREENING MAMMOGRAPHY WITH CAD CLINICAL INFORMATION: SCREENING HISTORY: Screening mammogram. No current complaints. COMPARISON: September 20, 2020 TECHNIQUE: Bilateral CC and MLO views. FINDINGS: Scattered fibroglandular densities bilaterally. Incidental punctate calcifications. Vascular calcific ation. No suspicious focal mass, asymmetry, calcifications, or architectural distortion. No evidence of malignancy. MM/[place] [id number] IMPRESSION: BI-RADS: 2-Benign FOLLOW UP: 1 Year Follow-up Recommend return to annual screening mammography.
== END 2022-05-24 14:16 | disposition home or self-care (01) ==
LOC: RAD 14:16
PROVIDERS: PCP Nurse Practitioner Family; Visit Provider Registered Nurse
DX: Z12.31 Encounter for screening mammogram for malignant neoplasm of breast (principal)
CPT/HCPCS: 77063; 77067

== ENCOUNTER → 2022-06-06 14:19 | Outpatient (BNVA) | payer MEDICARE, SELFPAY | PROVIDERS: PCP Nurse Practitioner Family; Visit Provider Internal Medicine Critical Care Medicine | DX: R06.02 Shortness of breath (principal); R05.9 Cough, unspecified; Z87.891 Personal history of nicotine dependence | CPT/HCPCS: 99213; 99214 ==

== ENCOUNTER → 2022-06-20 15:03 | Outpatient (BNVA) | payer MEDICARE, SELFPAY | PROVIDERS: PCP Nurse Practitioner Family; Visit Provider Internal Medicine Cardiovascular Disease | DX: I25.110 Atherosclerotic heart disease of native coronary artery with unstable angina pectoris (principal); I10 Essential (primary) hypertension; Z87.891 Personal history of nicotine dependence | CPT/HCPCS: 99214 ==

== ENCOUNTER → 2022-07-17 08:38 | Outpatient (BNVA) | payer MEDICARE, SELFPAY | PROVIDERS: PCP Nurse Practitioner Family; Visit Provider Podiatrist Foot & Ankle Surgery | DX: E11.42 Type 2 diabetes mellitus with diabetic polyneuropathy (principal); M20.20 Hallux rigidus, unspecified foot; M21.41 Flat foot [pes planus] (acquired), right foot; M21.42 Flat foot [pes planus] (acquired), left foot | CPT/HCPCS: 99203; 99204 ==

== ENCOUNTER → 2022-07-18 15:20 | Outpatient (BNVA) | payer MEDICARE, SELFPAY | PROVIDERS: PCP Nurse Practitioner Family; Referring Provider Family Medicine; Visit Provider Orthopaedic Surgery | DX: Z96.652 Presence of left artificial knee joint (principal); M17.11 Unilateral primary osteoarthritis, right knee | CPT/HCPCS: 73560; 73565; 99213 ==

== ENCOUNTER 2023-01-08 06:00 | Outpatient (RCR) | payer MEDICARE, SELFPAY | END 2023-01-15 23:59 | disposition home or self-care (01) | LOC: WPT 06:00 | PROVIDERS: PCP Nurse Practitioner Family; Visit Provider Internal Medicine Pulmonary Disease | DX: U07.1 COVID-19 (principal); R06.02 Shortness of breath | CPT/HCPCS: 97110; 97162 ==

== ENCOUNTER 2023-01-16 06:00 | Outpatient (RCR) | payer MEDICARE, SELFPAY | END 2023-02-15 23:59 | disposition home or self-care (01) | LOC: WPT 06:00 | PROVIDERS: PCP Nurse Practitioner Family; Visit Provider Internal Medicine Pulmonary Disease | DX: U07.1 COVID-19 (principal); R06.02 Shortness of breath | CPT/HCPCS: 97110; 97112; 97116; 97530 ==

== ENCOUNTER 2023-02-16 01:00 | Outpatient (RCR) | payer MEDICARE, SELFPAY | END 2023-03-17 23:59 | disposition home or self-care (01) | LOC: WPT 01:00 | PROVIDERS: PCP Nurse Practitioner Family; Visit Provider Internal Medicine Pulmonary Disease | DX: U07.1 COVID-19 (principal); R06.02 Shortness of breath | CPT/HCPCS: 97110; 97112; 97530 ==

== ENCOUNTER → 2024-03-23 15:42 | Outpatient (BNVA) | payer MEDICARE, SELFPAY | PROVIDERS: PCP Family Medicine; Visit Provider Podiatrist Foot & Ankle Surgery | DX: L60.3 Nail dystrophy (principal); G62.9 Polyneuropathy, unspecified; L84 Corns and callosities; E11.42 Type 2 diabetes mellitus with diabetic polyneuropathy | CPT/HCPCS: 11056; 11721; 99203 ==

== ENCOUNTER → 2024-06-22 15:28 | Outpatient (BNVA) | payer MEDICARE, SELFPAY | PROVIDERS: PCP Family Medicine; Visit Provider Podiatrist Foot & Ankle Surgery | DX: L60.3 Nail dystrophy (principal); E11.42 Type 2 diabetes mellitus with diabetic polyneuropathy; G62.9 Polyneuropathy, unspecified; L84 Corns and callosities | CPT/HCPCS: 11721 ==

== ENCOUNTER → 2024-08-24 15:15 | Outpatient (BNVA) | payer MEDICARE, SELFPAY | PROVIDERS: PCP Family Medicine; Visit Provider Podiatrist Foot & Ankle Surgery | DX: L60.3 Nail dystrophy (principal); G62.9 Polyneuropathy, unspecified; L84 Corns and callosities; E11.42 Type 2 diabetes mellitus with diabetic polyneuropathy | CPT/HCPCS: 11721 ==

== ENCOUNTER 2024-09-29 02:01 | Emergency (ER) | payer MEDICARE, SELFPAY ==
[2024-09-29] VITALS (12 sets, daily range): BP systolic 105–141; BP diastolic 57–78; PULSE 57–67; RESP 14–22; TEMP 36.6; O2SAT 92–99; BMI 35.2
--- NOTE | 2024-09-29 02:10 | CTR_ITS ---
PROCEDURE INFORMATION: Exam: CT Head Without Contrast Exam date and time: 09/29/2024 4:24 AM Age: 74 years old Clinical indication: Injury or trauma; Fall; Blunt trauma (contusions or hematomas); Patient HX: Jose put in tonight; Additional info: Fall, head injury TECHNIQUE: Imaging protocol: Computed tomography of the head without contrast. Radiation optimization: All CT scans at this facility use at least one of these dose optimization techniques: automated exposure control; mA and/or kV adjustment per patient size (includes targeted exams where dose is matched to clinical indication); or iterative reconstruction. COMPARISON: No relevant prior studies available. RADIATION DOSE METRICS: Total DLP (mGy-cm): 1143.69 FINDINGS: Tubes, catheters and devices: Jose over the right anterior frontal scalp. Brain: Global parenchymal atrophy. Mild intracranial calcified atherosclerotic disease. Cerebral ventricles: Ex vacuo dilation of the ventricles and the cerebral spinal fluid spaces. Paranasal sinuses: Visualized sinuses are unremarkable. No fluid levels. Mastoid air cells: Visualized mastoid air cells are well aerated. Bones: No fracture. Soft tissues: Unremarkable. CT/CT head wo con* [id number] IMPRESSION: 1. No acute intracranial findings. 2. Surgical jose over the right anterior frontal scalp.
--- NOTE | 2024-09-29 02:10 | XRR_ITS ---
PROCEDURE INFORMATION: Exam: XR Chest Exam date and time: 09/29/2024 2:25 AM Age: 74 years old Clinical indication: Injury or trauma; Fall; Blunt trauma (contusions or hematomas); Additional info: Ankle fracture TECHNIQUE: Imaging protocol: Radiologic exam of the chest. Views: 1 view. COMPARISON: No relevant prior studies available. FINDINGS: Lungs: Unremarkable. No consolidation. Pleural spaces: Unremarkable. No pleural effusion. No pneumothorax. Heart/Mediastinum: Unremarkable. No cardiomegaly. Bones/joints: Fractures of the left 6th through 8th ribs which appear chronic. No acute bony injury identified. XR/XR chest 1V portable [id number] IMPRESSION: No acute findings.
--- NOTE | 2024-09-29 02:10 | XRR_ITS ---
PROCEDURE INFORMATION: Exam: XR Left Ankle Exam date and time: 09/29/2024 2:22 AM Age: 74 years old Clinical indication: Injury or trauma; Fall; Blunt trauma; Ankle; Left; Additional info: Fall, deformity, swelling and pain TECHNIQUE: Imaging protocol: Radiologic exam of the left ankle. Views: 3 or more views. COMPARISON: CR XR knees AP WB w BI lmt ORTH 07/18/2022 3:20 PM FINDINGS: Bones/joints: Acute fracture of the medial, lateral and posterior malleolus with lateral subluxation of the tibiotalar joint. No dislocation. Joint effusion is present. Soft tissues: Surrounding soft tissue swelling.. XR/XR ankle LT min 3V* [id number] IMPRESSION: Acute trimalleolar fracture with lateral subluxation of the tibiotalar joint. No dislocation.
--- NOTE | 2024-09-29 02:10 | ECG_ITS ---
[facility] Test Date: 2024-09-29 Pat Name: Celsa Young Department: Room: Gender: Female Center Aisle Cashier: : 1950 Requested By: Viri Holt Order Number: [id number] Jozef MD: Sadaf Yang M.D. Measurements Intervals [place] Rate: 54 P: 52 UT: 180 QRS: 16 QRSD: 107 T: 7 QT: 440 QTc: 420 Interpretive Statements SINUS BRADYCARDIA LOW QRS VOLTAGE IN PRECORDIAL LEADS [QRS DEFLECTION < 1.0 mV IN CHEST LEADS] NONSPECIFIC ST & T-WAVE ABNORMALITY Compared to ECG 07/12/2020 12:16:24 Low QRS voltage now present Sinus rhythm no longer present Possible ischemia no longer present T-wave abnormality still present Electronically Signed On 10-01-2024 21:19:01 ASBESTOS PIPE SUPERVISOR by Sadaf Yang M.D. [email or web address]
--- NOTE | 2024-09-29 02:11 | ED_ITS ---
HPI - Head Injury 2 General: Chief complaint: Head Injury Stated complaint: FALL Time Seen by Provider: 09/29/24 02:07 History of Present Illness: 74-year-old female with a history of jevon betes, hypertension and COPD who presents the emergency room by ambulance after having a fall. She had an entertainment center with her head. She has bleeding on her right scalp superiorly. She has left ankle pain and a possible deformity. She has no other injuries. She did not lose consciousness. She is on an aspirin only for anticoagulation. No nausea or vomiting. No altered mental status. No focal motor deficits. No abdominal pain. Related Data Home Medications Medication Instructions Recorded Confirmed acetaminophen 650 mg 650 mg PO Q12H PRN PAIN 03/08/20 08/24/24 tablet,extended release (Tylenol Arthritis Pain) aspirin 81 mg tablet,delayed 81 mg PO DAILY 03/08/20 08/24/24 release (Adult Low Dose Aspirin) mecobalamin (vitamin B12) 1,000 1,000 mcg PO DAILY 03/08/20 08/24/24 mcg disintegrating tablet,sublingual pantoprazole 40 mg tablet,delayed 40 mg PO DAILY 03/08/20 08/24/24 release dulaglutide 0.75 mg/0.5 mL 0.75 mg SUBCUT DIRECTED 07/12/20 08/24/24 subcutaneous pen injector (Trulicity) metoprolol tartrate 100 mg tablet 50 mg PO BID 12/08/20 08/24/24 potassium chloride 20 mEq 20 meq PO DAILY 12/08/20 08/24/24 tablet,extended release ropinirole 0.5 mg tablet 0.5 mg PO DAILY 03/13/21 08/24/24 cholecalciferol (vitamin D3) 25 25 mcg PO DAILY 07/26/21 08/24/24 mcg (1,000 unit) capsule melatonin 10 mg tablet 20 mg PO DAILY 07/26/21 08/24/24 trazodone 100 mg tablet 100 mg PO .bedtime Pain 07/26/21 08/24/24 levothyroxine 200 mcg capsule 175 mcg PO DAILY 06/06/22 08/24/24 atorvastatin 20 mg tablet 20 mg PO DAILY 12/05/22 08/24/24 baclofen 10 mg tablet 10 mg PO BID 12/05/22 08/24/24 buspirone 10 mg tablet 10 mg PO TID 12/05/22 08/24/24 furosemide 20 mg tablet (Lasix) See Rx Instructions PO QAM 12/05/22 08/24/24 gabapentin 100 mg capsule 300 mg PO BID 12/05/22 08/24/24 meclizine 25 mg tablet 25 mg PO TID PRN DIZZINESS 12/05/22 08/24/24 meloxicam 7.5 mg tablet 7.5 mg PO DAILY 12/05/22 08/24/24 venlafaxine 75 mg capsule,extended 75 mg PO DAILY 12/05/22 08/24/24 release 24 hr Previous Rx's Medication Instructions Recorded albuterol sulfate 90 mcg/actuation 2 puff inhalation 6XD PRN 03/13/21 aerosol inhaler shortness of breath or wheezing 30 days #8.5 grams tramadol 50 mg tablet 50 mg PO Q6H PRN pain #30 tabs 06/07/21 losartan 25 mg tablet 25 mg PO DAILY #90 tabs 08/01/21 isosorbide mononitrate 30 mg 30 mg PO BID #180 tabs 02/20/22 tablet,extended release 24 hr fluticasone 250 mcg-salmeterol 50 1 inh inhalation BID 30 days #60 ea 06/06/22 mcg/dose blistr powdr for inhalation (Advair Diskus) Diabetic Shoes with 3 Inserts #1 ea 10/03/22 amlodipine 5 mg tablet 5 mg PO BID #60 tabs 02/19/23 nitroglycerin 0.4 mg sublingual 0.4 mg sublingual Q5M PRN chest 03/25/23 tablet (Nitrostat) pain 30 days #25 tabs diabetic shoes w/ 3 inserts #1 ea 03/23/24 cephalexin 500 mg capsule 500 mg PO TID 7 days #21 caps 09/29/24 hydrocodone 5 mg-acetaminophen 325 1 tab PO Q6H PRN pain #30 tabs 09/29/24 mg tablet ondansetron 8 mg disintegrating 8 mg PO Q6H #14 tabs 09/29/24 tablet polyethylene glycol 3350 17 17 g PO DAILY #510 grams 09/29/24 gram/dose oral powder (Miralax) Allergies Allergy/AdvReac Type Severity Reaction Status Date / Time Sulfa (Sulfonamide Allergy ALGY-Rash Verified 09/29/24 02:06 Antibiotics) Review of Systems 2 Narrative: Constitutional symptoms: Negative except as documented in HPI. Skin symptoms: Negative except as documented in HPI. Eye symptoms: Negative except as documented in HPI. ENMT symptoms: Negative except as documented in HPI. Respiratory symptoms: Negative except as documented in HPI. Cardiovascular symptoms: Negative except as documented in HPI. Gastrointestinal symptoms: Negative except as documented in HPI. Genitourinary symptoms: Negative except as documented in HPI. Musculoskeletal symptoms: Negative except as documented in HPI. Neurologic symptoms: Negative except as documented in HPI. Psychiatric symptoms: Negative except as documented in HPI. Endocrine symptoms: Negative except as documented in HPI. PFSH ED 2 PFSH: Medical History Anxiety and depression CARLITO (obstructive sleep apnea) GERD (gastroesophageal reflux disease) CAD (coronary artery disease) Diabetes mellitus HTN (hypertension) Surgical History S/P hysterectomy S/P cholecystectomy Status post left knee replacement S/P knee replacement S/P coronary angiogram Family History Other Cancer Diabetes Social History Smoking and tobacco/nicotine status: never used tobacco/nicotine Quit status (tobacco/nicotine): has quit using Year quit tobacco: 1975 Former quit date comment: Hx of 0.25 PPD x 5 Years Second hand smoke exposure: No Alcohol intake: never Substance/Drug Use: never Lives independently: Yes Household members: children Housing: Manufactured/Mobile home Marital status: / service: No Current occupational status: retired Pets and animals: Yes Do you think of yourself as: Straight/Heterosexual Current gender identity: Female Physical Exam 2 Narrative: EXAM NARRATIVE: General: Alert, no acute distress. Skin: Warm, dry. Head: Normocephalic, very large laceration to the scalp superiorly. This has a bit of a flap. Neck: Supple, trachea midline. Eye: Extraocular movements are intact. Ears, nose, mouth and throat: mucosa moist. Cardiovascular: Regular, Normal peripheral perfusion. Respiratory: Lungs are clear to auscultation, respirations are non-labored, breath sounds are equal, Symmetrical chest wall expansion. Gastrointestinal: Soft, Nontender, Non distended Musculoskeletal: Swelling, bruising and rotation of the left foot and ankle. Neurological: Alert and oriented, No focal neurological deficit observed. Psychiatric: Cooperative, appropriate mood & affect. Course 2 Vital Signs: Vital signs: Vital Signs Temperature 97.8 F 09/29/24 02:02 Pulse Rate 59 L 09/29/24 05:30 Respiratory Rate 17 09/29/24 05:30 Blood Pressure 131/68 09/29/24 05:30 Pulse Oximetry 96 09/29/24 05:30 Oxygen Delivery Me thod Room Air 09/29/24 05:30 MDM - Head Injury Medcial Decision Making Medical decision making: Differential diagnosis including but not limited to and based on the above HPI, review of systems and physical exam: Concern for intracranial head injury and skull fractures. CT was ordered to evaluate this. Also concern for an ankle fracture or dislocation so an x-ray was ordered of that. Orders placed to evaluate differential diagnosis based on the above differential, HPI and physical exam Chest x-ray: No acute process. No infiltrate. No pneumothorax. This was reviewed and interpreted by myself the emergency room physician. I also reviewed the radiology report. X-ray of the left ankle: Acute trimalleolar fracture with lateral subluxation of the tibial talar joint. Anterior dislocation Consultation: I spoke with Dr. Bishop who is on-call for podiatry. He recommends a CT scan. He recommends reduction. He will follow-up with patient in clinic and set up patient for outpatient surgery. Procedural sedation Time: 3:30 AM Confirmed: Patient and procedure correct. Consent: Consent: The risks and benefits of monitored anesthesia care, including the risk of aspiration, nausea/vomiting and the risks of not performing the procedure, including severe pain and inability to complete the procedure, were all discussed with the patient. The alternatives of performing the procedure, including local anesthesia and IV analgesia, also discussed. The patient has a ride home available Indication: Closed reduction. Also laceration repair while under anesthesia Monitoring: Cardiac, blood pressure, continuous pulse oximetry. Preparation: Suction, IV access, Constant attendance, Supplemental oxygen. ASA 2: A patient with mild systemic disease. See ER physician note for summary of the patient's present medication list and for drug allergy and intolerance history Physical exam: Airway: appears normal, Heart: regular rate and rhythm, Breath sounds: equal. Pre sedation vital signs: See nurse's notes. Procedural sedation: 100 mg IV propofol And 50 mg increments Post sedation vital signs: See nurse's notes. Patient tolerated: Well. Complications: The patient was recovered from the sedation without complication or incident. Post sedation condition: Patient returned to pre-sedation level of awareness. The monitoring was discontinued at this time. Performed by: Self. Notes: Pt attended by independent trained observer time of sedation was 20 minutes. . Fracuture / Dislocation procedure Time: 3:30 AM Confirmed correct: Patient, procedure, sight. Consent: Patient Indication: Dislocation Location: Left ankle Pre procedure exam: Sensory intact, Procedural sedation: (repeat): IV propofol 100 mg Monitoring: Cardiac, blood pressure and pulse oximiter Technique: traction - counter traction. Post-procedure exam: _ alignment improved, circulatory neuro intact. Immobilization: Splint was placed by myself and nursing. Patient tolerated: Well Complications: None Performed by (rpt): Self Notes: Procedure time: 15 minutes Laceration repair procedure: Time: 3:45 AM Confirmed patient, procedure, side, and site. Time out performed prior to procedure. Verbal consent was obtained by patient and/or responsible republican. Indication: Laceration Location: Scalp Length: cm Description: Anesthesia: mL 1% lidocaine with epinephrine Area prepared by sterile field with Betadine. # 22 jose -simple, interrupted technique. Post procedure examination: Circulation, motor, sensory intact. Patient tolerated the procedure well. No complications, bleeding. Total time: 5 min. Pt advised to keep the area clean and dry, wash twice per day with antibacterial soap and water. Return to the ED or PCP in 7-10 days for suture removal. X-ray of the left ankle: Postreduction films. Now with anatomic alignment of trimalleolar fracture with a splint in place. This was reviewed and interpreted by myself the emergency room physician. I also reviewed the radiology report. Lab Review: Laboratory results were reviewed and interpreted by myself the emergency room physician. Lab work is fairly unremarkable. No leukocytosis. No anemia. No renal failure. CT head: No acute intracranial process. no intracranial hemorrhage, no evidence of infarct. no evidence of acute fracture.This was reviewed and interpreted by myself the ER physician. I reviewed the patient's medical record. Reexamination: Splint placed by myself and nursing. Patient is neurovascularly intact. She has no altered mental status. No focal motor deficits. No increased work of breathing. Assessment and plan: Trimalleolar ankle fracture Scalp laceration Head injury ?Tetanus, Ancef, suture repair, reduction of ankle fracture with splinting. - Discharged home - Discussed findings and plan with patient. Answered any questions. - All laboratory values were reviewed and interpreted personally by myself, the ER physician - All imaging was reviewed and interpreted personally by myself, the ER physician. - Evaluation and treatment of this problem were appropriate in the emergency setting Lab Data 09/29/24 02:30 09/29/24 02:30 Radiology Impressions Chest X-Ray 09/29/24 02:10 IMPRESSION: No acute findings. Head CT 09/29/24 02:10 IMPRESSION: 1. No acute intracranial findings. 2. Surgical jose over the right anterior frontal scalp. Ankle CT 09/29/24 02:35 IMPRESSION: 1. Multiple fractures of the ankle joint as detailed above with associated soft tissue traumatic change. 2. Patient is status post reduction and immobilization. Ankle X-Ray 09/29/24 02:50 IMPRESSION: Anatomic alignment of trimalleolar fracture with splint in place. Laboratory Results WBC 9.97 10^3/uL (3.29-11.43) 09/29/24 02:30 RBC 4.60 10^6/uL (3.85-5.65) 09/29/24 02:30 Hgb 12.70 g/dL (11.27-16.99) 09/29/24 02:30 Hct 40.7 % (36-47) 09/29/24 02:30 MCV 88.5 fl (85-98) 09/29/24 02:30 MCH 27.6 pg (27-33) 09/29/24 02:30 MCHC 31.2 g/dL (30-55) 09/29/24 02:30 RDW 13.8 % (12.1-15.1) 09/29/24 02:30 Plt Count 201 10^3/cmm (157-399) 09/29/24 02:30 MPV 9.8 fL (7.4-10.4) 09/29/24 02:30 Neut % (Auto) 68.9 % 09/29/24 02:30 Lymph % (Auto) 19.5 % 09/29/24 02:30 [place] % (Auto) 7.9 % 09/29/24 02:30 Eos % (Auto) 2.9 % 09/29/24 02:30 Baso % (Auto) 0.5 % 09/29/24 02:30 Neut # (Auto) 6.87 10^3/uL (1.8-7.7) 09/29/24 02:30 Lymph # (Auto) 1.9 10^3/uL (0.8-4.8) 09/29/24 02:30 [place] # (Auto) 0.8 10^3/uL (0.2-0.9) 09/29/24 02:30 Eos # (Auto) 0.3 10^3/uL (0.0-0.8) 09/29/24 02:30 Baso # (Auto) 0.1 10^3/uL (0.0-0.1) 09/29/24 02:30 Nucleated RBC % (auto) 0 % 09/29/24 02:30 Nucleated RBCs # 0.0 /100WBC 09/29/24 02:30 PT 13.20 SECONDS (12.1-14.9) 09/29/24 02:30 INR 0.97 (0.8-1.2) 09/29/24 02:30 APTT 29.5 SECONDS (23.9-36.7) 09/29/24 02:30 Sodium 138 mmol/L (136-145) 09/29/24 02:30 Potassium 3.7 mmol/L (3.5-5.1) 09/29/24 02:30 Chloride 101 mmol/L (98-107) 09/29/24 02:30 Carbon Dioxide 27 mmol/L (22-29) 09/29/24 02:30 Anion Gap 13.7 (5-19) 09/29/24 02:30 BUN 13 mg/dL (8-23) 09/29/24 02:30 Creatinine 0.7 mg/dL (0.5-0.9) 09/29/24 02:30 GFR Calculation Not Reportable 09/29/24 02:30 Glucose 168 mg/dL (65-115) H 09/29/24 02:30 Calculated Osmolality 290 mOsm/kg (285-295) 09/29/24 02:30 Calcium 9.2 mg/dL (8.5-10.5) 09/29/24 02:30 Total Bilirubin 0.4 mg/dL (0.15-1.2) 09/29/24 02:30 AST 16 U/L (0-32) 09/29/24 02:30 ALT 13 U/L (0-33) 09/29/24 02:30 Alkaline Phosphatase 127 U/L (35-105) H 09/29/24 02:30 Total Protein 6.9 g/dL (6.6-8.7) 09/29/24 02:30 Albumin 4.0 g/dL (3.5-5.2) 09/29/24 02:30 Globulin 2.9 g/dL (1.3-4.6) 09/29/24 02:30 All radiology interpretation(s) finalized by discharge Discharge Plan Discharge Patient Disposition: Home Clinical Impression: Closed trimalleolar fracture of ankle, Laceration of scalp Condition: Stable Prescriptions: New hydrocodone-acetaminophen 5-325 mg tablet 1 tab PO Q6H PRN (Reason: pain) Qty: 30 0RF ondansetron 8 mg tablet,disintegrating 8 mg PO Q6H Qty: 14 0RF Rx Instructions: Take 1/2-1 tab every 6 hours as needed for nausea and vomiting cephalexin 500 mg capsule 500 mg PO TID 7 Days Qty: 21 0RF polyethylene glycol 3350 [Miralax] 17 gram/dose powder 17 g PO DAILY Qty: 510 0RF Rx Instructions: Take 1 scoop daily while taking pain medications. No Action cholecalciferol (vitamin D3) 25 mcg (1,000 unit) capsule 25 mcg PO DAILY melatonin 10 mg tablet 20 mg PO DAILY aspirin [Adult Low Dose Aspirin] 81 mg tablet,delayed release (DR/EC) 81 mg PO DAILY pantoprazole 40 mg tablet,delayed release (DR/EC) 40 mg PO DAILY mecobalamin (vitamin B12) 1,000 mcg tablet,disintegrating 1,000 mcg PO DAILY acetaminophen [Tylenol Arthritis Pain] 650 mg tablet extended release 650 mg PO Q12H PRN (Reason: PAIN) metoprolol tartrate 100 mg tablet 50 mg PO BID potassium chloride 20 mEq tablet extended release 20 meq PO DAILY trazodone 100 mg tablet 100 mg PO .bedtime levothyroxine 200 mcg capsule 175 mcg PO DAILY gabapentin 100 mg capsule 300 mg PO BID furosemide [Lasix] 20 mg tablet See Rx Instructions PO QAM Rx Instructions: orally every morning; TAKE 2 IN AM AND 1 AT NIGHT meclizine 25 mg tablet 25 mg PO TID PRN (Reason: DIZZINESS) ropinirole 0.5 mg tablet 0.5 mg PO DAILY albuterol sulfate 90 mcg/actuation HFA aerosol inhaler 2 puff inhalation 6XD PRN (Reason: shortness of breath or wheezing) 30 Days Qty: 8.5 3RF fluticasone propion-salmeterol [Advair Diskus] 250-50 mcg/dose blister with device 1 inh inhalation BID 30 Days Qty: 60 6RF atorvastatin 20 mg tablet 20 mg PO DAILY baclofen 10 mg tablet 10 mg PO BID venlafaxine 75 mg capsule,extended release 24hr 75 mg PO DAILY meloxicam 7.5 mg tablet 7.5 mg PO DAILY buspirone 10 mg tablet 10 mg PO TID (DME) diabetic shoes w/ 3 inserts See Rx Instructions .Route .MEDSUPPLY Qty: 1 0RF Rx Instructions: As directed tramadol 50 mg tablet 50 mg PO Q6H PRN (Reason: pain) Qty: 30 0RF losartan 25 mg tablet 25 mg PO DAILY Qty: 90 3RF isosorbide mononitrate 30 mg tablet extended release 24 hr 30 mg PO BID Qty: 180 1RF (DME) Diabetic Shoes with 3 Inserts See Rx Instructions .Route .MEDSUPPLY Qty: 1 0RF Rx Instructions: As directed by HOME amlodipine 5 mg tablet 5 mg PO BID Qty: 60 1RF Rx Instructions: MUST have follow-up for further refills nitroglycerin [Nitrostat] 0.4 mg tablet, sublingual 0.4 mg SUBLINGUAL Q5M PRN (Reason: chest pain) 30 Days Qty: 25 3RF Rx Instructions: do not exceed 3 doses per episode Trulicity 0.75 mg/0.5 mL Pen Injector 0.75 mg SUBCUT DIRECTED Rx Instructions: WEEKLY ON SATURDAY Discharge Orders: Discharge ED (Routine); Ordered 09/29/24 Ordered By: Viri Salter Referrals: Darrick Bishop DPM [Physician] - 4-7 days (Please call for an appointment tomorrow if you do not hear from Dr. Bishop's clinic first.) Bulmaro Rebollar [Primary Care Provider] - Discharge Diet: Usual diet Discharge Activity: Use walker/crutches as instructed and Wheelchair as instructed Patient Instructions: Laceration (ED), Splint Care (ED), Staple Care (ED), Opioid Safety, Pain Management Activity Restrictions/Additional Instructions: Keep the area clean and dry, wash twice per day with antibacterial soap and water. Return to your primary provider or the emergency room in 7 days for suture removal. Avoid any prolonged submersion in water. Avoid all [place] water, pond water, streams or other untreated water. Thank you for choosing [facility] for your healthcare needs today. Please realize this is an emergency room and that we are providing you with a medical screening exam and this may not be complete and all inclusive of all the testing and or work up that you may need to determine your ailment or severity of your illness. You have been screened and evaluated and felt safe for discharge. Health conditions do change or evolve sometimes and as such it is important that you follow up with your Primary Doctor to be re checked, 3-5 days is a general good time frame for follow up. You are always welcome to return to the ED for re assessment if your symptoms are worsening or you have new concerns Coding Level of Care Code ED Parimutuel [employer] for Dayanna Whipple
[2024-09-29 02:35] LABS: Basophils # 0.1 10^3/uL (0.0-0.1); Basophils % 0.5 %; Eosinophils # 0.3 10^3/uL (0.0-0.8); Eosinophils % 2.9 %; Hematocrit 40.7 % (36-47); Lymphocytes # 1.9 10^3/uL (0.8-4.8); Lymphocytes % 19.5 %; Mean Corpuscular HGB Conc 31.2 g/dL (30-55); Mean Corpuscular Hemoglobin 27.6 pg (27-33); Mean Corpuscular Volume 88.5 fl (85-98); Mean Platelet Volume 9.8 fL (7.4-10.4); Monocytes # 0.8 10^3/uL (0.2-0.9); Monocytes % 7.9 %; Neutrophils # 6.87 10^3/uL (1.8-7.7); Neutrophils % 68.9 %; Nucleated Red Blood Cells % 0 %; Platelet Count 201 10^3/cmm (157-399); Red Cell Distribution Width 13.8 % (12.1-15.1); White Blood Count 9.97 10^3/uL (3.29-11.43)
--- NOTE | 2024-09-29 02:35 | CTR_ITS ---
PROCEDURE INFORMATION: Exam: CT Left Lower Extremity, Ankle Exam date and time: 09/29/2024 4:27 AM Age: 74 years old Clinical indication: Injury or trauma; Fall; Blunt trauma; Ankle; Left; Additional info: Ankle fracture, ortho request TECHNIQUE: Imaging protocol: CT of the left lower extremity without contrast was performed. Exam focused on the ankle. Radiation optimization: All CT scans at this facility use at least one of these dose optimization techniques: automated exposure control; mA and/or kV adjustment per patient size (includes targeted exams where dose is matched to clinical indication); or iterative reconstruction. COMPARISON: CR XR ankle LT 1V [id number] 09/29/2024 2:51 AM RADIATION DOSE METRICS: Total DLP (mGy-cm): 197.33 FINDINGS: Tubes, catheters and devices: Patient is status post reduction and immobilization. Bones/joints: Transverse fracture through the medial malleolus with intra-articular extension. Vertical transverse fracture through the posterior malleolus of the tibia with intra-articular extension. Comminuted fracture of the distal fibular head. Soft tissues: Subcutaneous fat reticulation noted about the ankle and lower extremity. Fluid seen along the anterior superficial muscle fascia in crescent like matter (series 4 images 20 [address] 62). CT/CT ankle LT wo con* [id number] IMPRESSION: 1. Multiple fractures of the ankle joint as detailed above with associated soft tissue traumatic change. 2. Patient is status post reduction and immobilization.
[2024-09-29 02:48] LABS: INR 0.97 (0.8-1.2); Partial Thromboplastin Time 29.5 SECONDS (23.9-36.7)
[2024-09-29] MEDS: ondansetron 2 mg/ML SDV 2 mL 4 MG IVP ×2 (02:49→03:21)
--- NOTE | 2024-09-29 02:50 | XRR_ITS ---
PROCEDURE INFORMATION: Exam: XR Left Ankle Exam date and time: 09/29/2024 2:51 AM Age: 74 years old Clinical indication: Pain; Ankle; Left; Additional info: Post reduction TECHNIQUE: Imaging protocol: Radiologic exam of the left ankle. Views: 1 or 2 views. COMPARISON: CR (LOW EXM, ) 09/29/2024 2:22 AM FINDINGS: Bones/joints: Anatomic alignment of trimalleolar fracture with splint in place. Subluxation has been reduced. Soft tissues: Soft tissue swelling persists. XR/XR ankle LT 1V [id number] IMPRESSION: Anatomic alignment of trimalleolar fracture with splint in place.
[2024-09-29 02:55] LABS: Alanine Aminotransferase 13 U/L (0-33); Alkaline Phosphatase 127 U/L (35-105); Aspartate Amino Transferase 16 U/L (0-32); Blood Urea Nitrogen 13 mg/dL (8-23); Calcium 9.2 mg/dL (8.5-10.5); Carbon Dioxide 27 mmol/L (22-29); Chloride 101 mmol/L (98-107); Creatinine Clr Calc Pharmacy 69.7002; Globulin 2.9 g/dL (1.3-4.6); Glucose 168 mg/dL (65-115); Osmolality Calculated 290 mOsm/kg (285-295); Sodium 138 mmol/L (136-145); Total Bilirubin 0.4 mg/dL (0.15-1.2); Total Protein 6.9 g/dL (6.6-8.7)
[2024-09-29 02:58] LABS: Anion Gap 13.7 (5-19); Potassium 3.7 mmol/L (3.5-5.1)
[2024-09-29] MEDS: morphine 4 mg/mL SDV 1 mL IVP (03:20)
[2024-09-29] MEDS: propofol 10 mg/mL SDV 20 mL 100 MG IVP (03:35)
[2024-09-29] MEDS: tetanus-dipt-pertussis 0.5 mL SDV IM (03:48)
[2024-09-29] MEDS: ceFAZolin 2,000 mg SDV 2000 MG IVP (03:50)
== END 2024-09-29 05:40 | disposition home or self-care (01) ==
PROVIDERS: Emergency Provider Emergency Medicine; PCP Family Medicine
DX: S82.852A Displaced trimalleolar fracture of left lower leg, initial encounter for closed fracture (principal); W18.39XA Other fall on same level, initial encounter; E11.42 Type 2 diabetes mellitus with diabetic polyneuropathy; L60.3 Nail dystrophy; G62.9 Polyneuropathy, unspecified; L84 Corns and callosities; S01.01XA Laceration without foreign body of scalp, initial encounter; Z79.82 Long term (current) use of aspirin; Z79.1 Long term (current) use of non-steroidal anti-inflammatories (NSAID); Z87.891 Personal history of nicotine dependence; I10 Essential (primary) hypertension; I25.10 Atherosclerotic heart disease of native coronary artery without angina pectoris
CPT/HCPCS: 12004; 27818; 36415; 70450; 71045; 73600; 73610; 73700; 80053; 85025; 85610; 85730; 90471; 90715; 93005; 96374; 96375; 96376; 99152; 99214; 99285; A4590; J0690; J2270; J2405; J2704

== ENCOUNTER → 2024-10-01 15:42 | Outpatient (BNVA) | payer MEDICARE, SELFPAY | PROVIDERS: PCP Family Medicine; Visit Provider Internal Medicine Cardiovascular Disease | DX: I25.110 Atherosclerotic heart disease of native coronary artery with unstable angina pectoris (principal); I10 Essential (primary) hypertension; E78.5 Hyperlipidemia, unspecified; E11.9 Type 2 diabetes mellitus without complications | CPT/HCPCS: 99214 ==

== ENCOUNTER 2024-10-05 05:35 | Day surgery (SDC) | payer MEDICARE, SELFPAY ==
[2024-10-05] VITALS (12 sets, daily range): BP systolic 91–119; BP diastolic 55–65; PULSE 63–70; RESP 14–17; TEMP 36.4–36.9; O2SAT 91–96; BMI 36.2
--- NOTE | 2024-10-05 06:26 | P.HPUD_ITS ---
Surgery/Procedure H&P Update DATE OF PROCEDURE: October 05, 2024 DATE H&P PERFORMED: 09/29/24 H&P UPDATE INFORMATION: I have reviewed H&P completed within last 30 days, I have examined patient prior to procedure, No changes to prior documentation and H&P is in [facility] [place] indicated PREOP DIAGNOSIS: Left trimalleolar ankle fracture PLANNED PROCEDURE: Operation Date: 10/05/24 07:00 Proposed Procedures p ORIF Ankle ORIF Trimalleolar Fracture(Left) - Darrick Bishop DPM
[2024-10-05] MEDS: acetaminophen 1,000 MG/100 ML PIGGYBACK 400 MG IV (06:27)
[2024-10-05] MEDS: gabapentin 300 mg Capsule PO (06:27)
[2024-10-05] MEDS: sodium chloride 0.9% 1,000 ML 30 ML IV (06:28)
[2024-10-05 06:53] LABS: Glucose Point of Care 146 mg/dL (70-110)
--- NOTE | 2024-10-05 07:12 | ANES.PREANE2 ---
Pre-Anesthetic Assessment Height/Weight: Height 1.65 m Weight 98.883 kg Temp Pulse Resp BP Pulse Ox O2 Del Method 98.5 F 66 16 115/65 91 Room Air 10/05/24 06:11 10/05/24 06:11 10/05/24 06:11 10/05/24 06:11 10/05/24 06:11 10/05/24 06:16 Preop Diagnosis: Left trimalleolar ankle fracture Operation Date: 10/05/24 07:00 Proposed Procedures p ORIF Ankle ORIF Trimalleolar Fracture(Left) - Darrick Bishop DPM Familial anesthetic complications: None Was Beta Goldy taken within 24 hours: N/A Was Clonidine taken within 24 hours: N/A Last intake: Intake Last Liquid Date 10/04/24 Last Liquid Time 21:50 Last Solid Date 10/04/24 Last Solid Time 21:50 Social No alcohol and No tobacco Exam alert, oriented x 3, clear to auscultation bilaterally and regular rate & rhythm Airway Mallampati: Class IV Dentition: other (no teeth) Pulmonary Sleep Apnea CV/HEM Coronary Artery Disease and Hypertension GI Gastroesophageal Reflux Disease Metabolic Diabetes Mellitus, Hyperlipidemia, Morbid Obesity and Thyroid Disease Anesthetic Plan ASA status: 3 Anesthesia: General and Regional (specify below) Risk of > 500 ml blood loss (7ml/kg in children): No Medications/Allergies Home Medications Medication Instructions Recorded Confirmed Last Taken Type acetaminophen 650 mg 650 mg PO Q12H PRN PAIN 03/08/20 10/02/24 04/19/21 History tablet,extended release (Tylenol Arthritis Pain) aspirin 81 mg tablet,delayed 81 mg PO DAILY 03/08/20 10/02/24 09/24/24 History release (Adult Low Dose Aspirin) mecobalamin (vitamin B12) 1,000 1,000 mcg PO DAILY 03/08/20 10/02/24 10/02/24 History mcg disintegrating tablet,sublingual pantoprazole 40 mg tablet,delayed 40 mg PO DAILY 03/08/20 10/02/24 10/02/24 History release metoprolol tartrate 100 mg tablet 50 mg PO BID 12/08/20 10/02/24 10/05/24 History potassium chloride 20 mEq 20 meq PO DAILY 12/08/20 10/02/24 10/02/24 History tablet,extended release albuterol sulfate 90 mcg/actuation 2 puff inhalation 6XD PRN 03/13/21 10/02/24 Unknown Rx aerosol inhaler shortness of breath or wheezing 30 days #8.5 grams ropinirole 0.5 mg tablet 0.5 mg PO DAILY 03/13/21 10/02/24 10/01/24 History cholecalciferol (vitamin D3) 25 25 mcg PO DAILY 07/26/21 10/02/24 10/02/24 History mcg (1,000 unit) capsule melatonin 10 mg tablet 20 mg PO DAILY 07/26/21 10/02/24 10/01/24 History trazodone 100 mg tablet 100 mg PO .bedtime Pain 07/26/21 10/02/24 10/01/24 History losartan 25 mg tablet 25 mg PO DAILY #90 tabs 08/01/21 10/02/24 10/02/24 Rx isosorbide mononitrate 30 mg 30 mg PO BID #180 tabs 02/20/22 10/02/24 10/02/24 Rx tablet,extended release 24 hr fluticasone 250 mcg-salmeterol 50 1 inh inhalation BID 30 days #60 ea 06/06/22 10/02/24 10/02/24 Rx mcg/dose blistr powdr for inhalation (Advair Diskus) levothyroxine 200 mcg capsule 175 mcg PO DAILY 06/06/22 10/02/24 10/05/24 History Diabetic Shoes with 3 Inserts #1 ea 10/03/22 09/29/24 Unknown Rx atorvastatin 20 mg tablet 20 mg PO DAILY 12/05/22 10/02/24 10/02/24 History baclofen 10 mg tablet 10 mg PO BID 12/05/22 10/02/24 10/02/24 History buspirone 10 mg tablet 10 mg PO TID 12/05/22 10/02/24 10/02/24 History furosemide 20 mg tablet (Lasix) 20 mg PO QAM 12/05/22 10/02/24 10/02/24 History gabapentin 100 mg capsule 300 mg PO BID 12/05/22 10/02/24 10/02/24 History meclizine 25 mg tablet 25 mg PO TID PRN DIZZINESS 12/05/22 10/02/24 10/02/24 History meloxicam 7.5 mg tablet 7.5 mg PO DAILY 12/05/22 10/02/24 10/02/24 History venlafaxine 75 mg capsule,extended 75 mg PO DAILY 12/05/22 10/02/24 10/02/24 History release 24 hr amlodipine 5 mg tablet 5 mg PO BID #60 tabs 02/19/23 10/02/24 10/05/24 Rx nitroglycerin 0.4 mg sublingual 0.4 mg sublingual Q5M PRN chest 03/25/23 10/02/24 Unknown Rx tablet (Nitrostat) pain 30 days #25 tabs diabetic shoes w/ 3 inserts #1 ea 03/23/24 09/29/24 Unknown Rx cephalexin 500 mg capsule 500 mg PO TID 7 days #21 caps 09/29/24 10/02/24 10/02/24 Rx hydrocodone 5 mg-acetaminophen 325 1 tab PO Q6H PRN pain #30 tabs 09/29/24 10/02/24 10/05/24 Rx mg tablet ondansetron 8 mg disintegrating 8 mg PO Q6H #14 tabs 09/29/24 10/02/24 10/01/24 Rx tablet polyethylene glycol 3350 17 17 g PO DAILY #510 grams 09/29/24 10/02/24 10/02/24 Rx gram/dose oral powder (Miralax) wheelchair #1 ea 09/29/24 09/29/24 Unknown Rx hydrocodone 5 mg-acetaminophen 325 1 tab PO Q6H PRN pain #28 tabs 10/05/24 Unknown Rx mg tablet Allergies Allergy/AdvReac Type Severity Reaction Status Date / Time Sulfa (Sulfonamide Allergy ALGY-Rash Verified 10/01/24 15:50 Antibiotics) Current Medications Generic Name Dose Route Start Last Admin Trade Name Freq PRN Reason Stop Dose Admin Sodium Chloride 1,000 mls @ 30 mls/hr 10/05/24 06:00 10/05/24 06:28 Sodium Chloride 0.9% IV 10/06/24 05:59 30 mls/hr .Q24H MELINDA Administration PFSH Anesthesia Medical History Anxiety and depression CARLITO (obstructive sleep apnea) GERD (gastroesophageal reflux disease) CAD (coronary artery disease) Diabetes mellitus HTN (hypertension) Surgical History S/P hysterectomy S/P cholecystectomy Status post left knee replacement S/P knee replacement S/P coronary angiogram Family History Other Cancer Diabetes Social History Smoking and tobacco/nicotine status: former use of tobacco/nicotine Quit status (tobacco/nicotine): has quit using Year quit tobacco: 1975 Former quit date comment: Hx of 0.25 PPD x 5 Years Second hand smoke exposure: No Alcohol intake: never Substance/Drug Use: never Lives independently: Yes Household members: children Housing: Manufactured/Mobile home Marital status: / service: No Current occupational status: retired Pets and animals: Yes Do you think of yourself as: Straight/Heterosexual Current gender identity: Female Data Anesthesia Cardiac Studies: Echocardiogram 12/12/21 Sestamibi Stress Test (Cardiology) 09/29/21
--- NOTE | 2024-10-05 07:13 | ANES.PROC ---
Anesthesia Procedures Procedure/Date: 10/05/24 Nerve Block ^: Nerve Block 1: Main Anesthesia: general anesthesia Time Out Performed: Yes Consent: requested by attending/covering physician, from patient, from other, risks and benefits reviewed and patient agrees to proceed Nerve block location: popliteal (L) Anesthesia monitors applied: pulse oximetry, EKG, BP cuff and oxygen Nerve block position: supine Anesthetic Used: ropivicaine 0.5% (20 ml) and with decadron (3 mg) Ultrasound used to: recognize landmarks Nerve Stimulator Used?: No Interscalene/Femoral BLK: visualize local anesthetic spread and no vascular puncture identified Injection: neg aspiration of heme Patient Tolerated Procedure: well Complications: none
--- NOTE | 2024-10-05 07:14 | ANES.PROC ---
Anesthesia Procedures Procedure/Date: 10/05/24 Nerve Block ^: Nerve Block 1: Main Anesthesia: general anesthesia Time Out Performed: Yes Consent: requested by attending/covering physician, from patient, from other, risks and benefits reviewed and patient agrees to proceed Nerve block location: adductor canal (L) and popliteal (L) Anesthesia monitors applied: pulse oximetry, EKG, BP cuff and oxygen Nerve block position: supine Anesthetic Used: ropivicaine 0.5% (20 ml popliteal, 10 ml adductor) and with decadron (4 mg) Ultrasound used to: recognize landmarks Nerve Stimulator Used?: No Interscalene/Femoral BLK: 4 stimuplex 21 g needle used for position and inplane approach, visualize local anesthetic spread and no vascular puncture identified Injection: neg aspiration of heme Patient Tolerated Procedure: well Complications: none
[2024-10-05] MEDS: ceFAZolin 2,000 mg SDV 2000 MG IVP (07:20)
--- NOTE | 2024-10-05 07:38 | PC.NURSE ---
0755:Poplteal block performed with 20 ml .5% ropivicaine and adductor block performed using 10 ml .5% ropivicaine . Both using ultrasound guidance by DAKOTA
[2024-10-05] MEDS: BUPivacaine 0.5% INJ 10 mL INJECTION (10:02)
--- NOTE | 2024-10-05 10:18 | P.OP_ITS ---
Operative Report Date of procedure: October 05, 2024 Surgeon: Darrick Bishop DPM Procedure: Date of procedure: 10/05/2024 Pre-op diagnosis: Left trimalleolar ankle fracture Post-op diagnosis: Same Post-op findings: Displaced trimalleolar ankle fracture. Stable syndesmosis after repair Procedure done: ORIF left trimalleolar ankle fracture CPT 56043 Implants: 2 partially-threaded headed cannulated screws, one third tubular plate with 3.0 locking and nonlocking screws and mini comprehensive T plate with 2.7 locking and nonlocking screws all from [employer] Specimens removed: None Surgeon: Dr. Darrick Bishop DPM Foreclosure Paralegal: Valentin Le Estimated blood loss: 10 cc Tourniquet time: 1 hour 56 minutes Complications: None Patient is a 74-year-old female that has a history of left ankle trimalleolar ankle fracture. The extent of the injury necessitates open reduction internal fixation. A lengthy discussion regarding the procedure, including risks and complications has been had with the patient and is noted in the recent clinic note. Written and verbal consent have been obtained. All patient questions have been answered to the patient?s satisfaction. No written or verbal guarantees have been given or implied. The patient has been NPO since midnight. The history has been reviewed and the history and physical is current. The signed consent was confirmed and placed in the patient chart. Patient imaging has been reviewed and is consistent with the diagnosis. Under mild sedation, the patient was brought into the operating room and placed on the table in the prone position. IV antibiotics were given by the anesthesia team as preoperative surgical prophylaxis. General sedation was then performed by the anesthesiateam. A popliteal block was performed by the anesthesia department. A pneumatic tourniquet was then placed about the left thigh. The operative extremity was then prepped and draped in the usual fashion. The extremity was then elevated and exsanguinated before the tourniquet was inflated to 325 mmHg. After inflation, the following procedure was then performed. Attention was directed to the posterior aspect of the left leg where a 12 cm incision was made in the interval between the peroneal tendons and the Achilles tendon. Blunt dissection was carried down through subcutaneous the superficial fascia using mosquito hemostat. Care was taken to cauterize any bleeders as necessary. The sural nerve was visualized, identified and retracted from the operative field. Dissection was carried down to the crural fascia which was incised to expose the peroneal tendons which were retracted out of the operative field. The FHL was identified and incised from its origin of the fibula and moved medially to protect the neurovascular bundle. Dissection was carried down to the posterior aspect of the tibia. Self-retaining retractors were inserted into the incision to maintain visualization. The posterior malleolar fragment was visualized. Hematoma was removed from the fracture site using combination of dental pick, curette. Next the posterior malleolus fragment was reduced to an appropriate anatomic position before being temporally fixated. Next a mini comprehensive plate from [email or web address] was applied to the posterior aspect of the tibia. The holes of the plate were drilled and filled per manufacture protocol using a combination of locking and nonlocking 2.7 millimeter screws. Good position of the plate and screws was noted clinically as well as on C-arm imaging. Next, dissection was carried out to expose the posterior aspect of the fibula where there was noted to be an oblique fracture. Again, dental pick and curette was used to remove hematoma before the fibula was reduced to appropriate anatomic position. One third tubular plate was placed in antiglide fashion on the posterior aspect of the fibula before being fixated to bone using combination of locking and nonlocking 3.5 screws. The site was irrigated with copious amounts sterile saline before attention was directed to closure. Deep tissue was closed with 2-0 Vicryl followed by subcuticular closure with 3-0 Vicryl and skin closure with skin jose. The tourniquet was let down and the patient was flipped to the supine position. The foot was then reprepped and draped and the tourniquet was once again inflated to 325 mmHg. A #15 blade was used to make a sick centimeter incision overlying the medial malleolus. Dissection was carried down to the level of the medial malleolus. The fracture of the medial malleolus was identified and a dental pick and curette was used to remove hematoma formation from the fracture site before it was anatomically reduced using a [id number] reduction clamp. 2 guidewires were then driven across the fracture site in preparation for the medial malleolus screws. Two 3.5 headed, short threaded cannulated screws were then inserted over the wires across the fracture site. Good positioning of all hardware was noted clinically as well as on C-arm imaging. The syndesmosis was stressed under live fluoroscopy and was noted to be stable. The incision was irrigated with copious muscle sterile saline before attention was directed to closure. Deep tissue was closed with 2-0 Vicryl followed by subcuticular closure with 3-0 Vicryl and skin closure with skin jose. The tourniquet was let down and good hyperemic response was noted to all digits of the left foot. The incision sites were dressed with Xeroform, 4 x 4 gauze, Kerlix, Jovan. Patient was placed in a cam boot. The patient tolerated the procedure and anesthesia well and without comp lication. The patient was transported from the operating room to the recovery room with vital signs stable and vascular status intact to all digits of the left foot. The patient was given both written and verbal instructions to remain nonweightbearing to the operative extremity, to keep dressings/splint clean, dry and intact and to take pain medication as directed. The patient will follow-up in the outpatient setting at their scheduled appointment. The patient was discharged with my personal number and was instructed to call if any questions or issues should arise. They were discharged home once anesthesia criteria was met.
--- NOTE | 2024-10-05 10:18 | W.PM.BPON ---
Date of procedure: 10/05/2024 Surgeon name: Leona ThomasPSaud Personalized Living Manager Nurse(s) name(s): Valentin Le Procedure(s) performed: Open reduction internal fixation left trimalleolar ankle fracture Description of findings: Left trimalleolar ankle fracture Estimated blood loss: 10 cc Tourniquet time: 1 hour 56 minutes Specimen(s) removed: None Post-operative diagnosis: Trimalleolar ankle fracture left
--- NOTE | 2024-10-05 11:50 | ANE.PACU2 ---
Inpatient post-anesthesia follow up: Airway intact: Yes Vital signs: Temperature 97.6 F Pulse Rate 64 Respiratory Rate 17 Blood Pressure 114/60 Pulse Oximetry 95 Oxygen Delivery Me thod Room Air Oxygen Flow Rate 2 Fraction of Inspir ed Oxygen Hydration adequate: Yes Nausea and vomiting: No Pain level: 1 Mental status: Baseline
--- NOTE | 2024-10-06 | XR_ITS ---
WS: [id number] Exam: XR ankle LT min 3V* [id number] Date/Time of Exam: 10/06/2024 12:00 AM Reason For Exam: GAGAN PICS Single intraoperative lateral view of the LEFT ankle is submitted. The image was obtained for intraop erative purposes.
== END 2024-10-05 11:50 | disposition home or self-care (01) ==
PROVIDERS: PCP Family Medicine; Visit Provider Podiatrist Foot & Ankle Surgery
PROC: (CPT 27823; principal; 2024-10-05 07:00)
DX: S82.852A Displaced trimalleolar fracture of left lower leg, initial encounter for closed fracture (principal); X50.1XXA Overexertion from prolonged static or awkward postures, initial encounter; I25.10 Atherosclerotic heart disease of native coronary artery without angina pectoris; I10 Essential (primary) hypertension; K21.9 Gastro-esophageal reflux disease without esophagitis; E11.42 Type 2 diabetes mellitus with diabetic polyneuropathy; E78.5 Hyperlipidemia, unspecified; E66.01 Morbid (severe) obesity due to excess calories; Z68.36 Body mass index [BMI] 36.0-36.9, adult; G47.33 Obstructive sleep apnea (adult) (pediatric); Z87.891 Personal history of nicotine dependence
CPT/HCPCS: 27823; 36416; 73610; 76000; 82962; C1713; J0131; J0690; J1100; J2371; J2405; J2704; J2795; J3010; J3490; J7030

== ENCOUNTER → 2024-10-12 15:39 | Outpatient (BNVA) | payer MEDICARE, SELFPAY | PROVIDERS: PCP Family Medicine; Visit Provider Podiatrist Foot & Ankle Surgery | DX: S82.852A Displaced trimalleolar fracture of left lower leg, initial encounter for closed fracture (principal); X58.XXXA Exposure to other specified factors, initial encounter; L60.3 Nail dystrophy; E11.42 Type 2 diabetes mellitus with diabetic polyneuropathy; G62.9 Polyneuropathy, unspecified; L84 Corns and callosities | CPT/HCPCS: 73610; 99024 ==

== ENCOUNTER → 2024-10-19 16:05 | Outpatient (BNVA) | payer MEDICARE, SELFPAY | PROVIDERS: PCP Family Medicine; Visit Provider Podiatrist Foot & Ankle Surgery | DX: S82.852D Displaced trimalleolar fracture of left lower leg, subsequent encounter for closed fracture with routine healing; X58.XXXD Exposure to other specified factors, subsequent encounter; Z98.890 Other specified postprocedural states; L60.3 Nail dystrophy; E11.42 Type 2 diabetes mellitus with diabetic polyneuropathy; G62.9 Polyneuropathy, unspecified; L84 Corns and callosities | CPT/HCPCS: 73610; 99024 ==

== ENCOUNTER → 2024-10-26 16:24 | Outpatient (BNVA) | payer MEDICARE, SELFPAY | PROVIDERS: PCP Family Medicine; Visit Provider Podiatrist Foot & Ankle Surgery | DX: Z98.890 Other specified postprocedural states (principal); L60.3 Nail dystrophy; G62.9 Polyneuropathy, unspecified; L84 Corns and callosities; S82.852D Displaced trimalleolar fracture of left lower leg, subsequent encounter for closed fracture with routine healing; X58.XXXD Exposure to other specified factors, subsequent encounter; E11.42 Type 2 diabetes mellitus with diabetic polyneuropathy | CPT/HCPCS: 99024 ==

== ENCOUNTER → 2024-11-16 16:20 | Outpatient (BNVA) | payer MEDICARE, SELFPAY | PROVIDERS: PCP Family Medicine; Visit Provider Podiatrist Foot & Ankle Surgery | DX: Z98.890 Other specified postprocedural states | CPT/HCPCS: 73610; 99024 ==

== ENCOUNTER → 2024-11-30 15:23 | Outpatient (BNVA) | payer MEDICARE, SELFPAY | PROVIDERS: PCP Family Medicine; Visit Provider Podiatrist Foot & Ankle Surgery | DX: S82.852D Displaced trimalleolar fracture of left lower leg, subsequent encounter for closed fracture with routine healing; X58.XXXD Exposure to other specified factors, subsequent encounter; Z98.890 Other specified postprocedural states | CPT/HCPCS: 73610; 99024 ==

== ENCOUNTER 2024-12-10 06:00 | Outpatient (RCR) | payer MEDICARE, SELFPAY | END 2024-12-18 23:59 | disposition home or self-care (01) | LOC: WPT 06:00 | PROVIDERS: Visit Provider Podiatrist Foot & Ankle Surgery | DX: Z47.89 Encounter for other orthopedic aftercare (principal) | CPT/HCPCS: 97110; 97112; 97161; 97530 ==

== ENCOUNTER → 2024-12-15 14:54 | Outpatient (BNVA) | payer MEDICARE, SELFPAY | PROVIDERS: PCP Nurse Practitioner Family; Visit Provider Nurse Practitioner Family | DX: I10 Essential (primary) hypertension (principal); R05.9 Cough, unspecified; R07.9 Chest pain, unspecified; E55.9 Vitamin D deficiency, unspecified; R06.02 Shortness of breath; R53.81 Other malaise; E11.9 Type 2 diabetes mellitus without complications; M23.8X2 Other internal derangements of left knee | CPT/HCPCS: 71046; 73562; 80053; 80061; 81003; 82306; 83036; 84443 ==

== ENCOUNTER 2024-12-19 06:30 | Outpatient (RCR) | payer MEDICARE, SELFPAY | END 2025-01-15 23:59 | disposition home or self-care (01) | LOC: WPT 06:30 | PROVIDERS: PCP Nurse Practitioner Family; Visit Provider Podiatrist Foot & Ankle Surgery | DX: Z47.89 Encounter for other orthopedic aftercare (principal) | CPT/HCPCS: 97110; 97112; 97116; 97140; 97530 ==

== ENCOUNTER → 2024-12-28 15:31 | Outpatient (BNVA) | payer MEDICARE, SELFPAY | PROVIDERS: PCP Nurse Practitioner Family; Visit Provider Nurse Practitioner | DX: Z96.652 Presence of left artificial knee joint (principal); M25.562 Pain in left knee | CPT/HCPCS: 73560; 73565 ==

== ENCOUNTER 2025-01-14 08:26 | Outpatient (CLI) | payer MEDICARE, SELFPAY ==
--- NOTE | 2025-01-14 08:45 | NM_ITS ---
WS: [id number] THREE-PHASE BONE SCAN HISTORY: istability of left knee prosthesis, pain LEFT knee. Prior knee replacement. Pain in both shoulders. COMPARISON: Knee radiograph 12/28/2024 Patient is is injected with 26.6 mCi Tc99m HDP intravenously. Immediate angiographic phase imaging is performed over the area of concern. Static blood pool imaging also performed. Two-hour whole-body scintigrams performed in anterior and posterior projections. Additional large field of view imaging sub mitted as necessary. Imaging centered over the knees. Angiographic pool and blood pool imaging is normal centered over the knees. Photopenic defect on the LEFT from the prior prosthesis. On the 2-hour delayed imaging photopenic defect in the LEFT knee. There is some minimal intermediate uptake surrounding the prosthesis. Greatest increased uptake along the lateral tibial plateau stem. There is more focal increased uptake involving the lateral RIGHT knee. There is bone upon bone on a recent radiograph with sclerosis. Advanced degenerative changes at the LEFT ankle joint and mild in the RIGHT mid foot. Advanced bilateral osteoarthritic changes involving the RIGHT shoulders. The shoulders appear high riding with flattening of the normal contour the humeral heads. There may be a component of osteonecrosis. Bilateral AC joint arthropathy. Intermediate uptake in the midthoracic spine at T7 and T8 is likely related to facet arthropathy. Normal soft tissue and renal uptake. NM/NM bone 3 phase [id number] IMPRESSION: 1. Status post LEFT knee arthroplasty. Intermediate uptake surrounding the pro sthesis. Could potentially represent early changes of loosening. Radiographical ly no loosening is identified. 2. Advanced arthropathy involving the lateral RIGHT knee joint where there is bone upon bone on the radiograph. 3. Advanced osteoarthritic changes at the glenohumeral joints and AC joints. A bnormal contour of the humeral heads. May be a component of osteonecrosis with fragmentation. No prior recent radiographs for comparison. There was a chest ra diograph performed on 12/15/2024 which did not appear that abnormal. Consider fo llow-up shoulder radiographs.
== END 2025-01-14 08:27 | disposition home or self-care (01) ==
PROVIDERS: PCP Nurse Practitioner Family; Visit Provider Nurse Practitioner
DX: T84.023A Instability of internal left knee prosthesis, initial encounter (principal); M23.8X2 Other internal derangements of left knee; X58.XXXA Exposure to other specified factors, initial encounter; R93.6 Abnormal findings on diagnostic imaging of limbs; M19.012 Primary osteoarthritis, left shoulder; M19.011 Primary osteoarthritis, right shoulder; M19.072 Primary osteoarthritis, left ankle and foot; M19.071 Primary osteoarthritis, right ankle and foot; R93.7 Abnormal findings on diagnostic imaging of other parts of musculoskeletal system
CPT/HCPCS: 78315; A9561

== ENCOUNTER 2025-01-16 06:00 | Outpatient (RCR) | payer MEDICARE, SELFPAY | END 2025-02-15 23:59 | disposition home or self-care (01) | LOC: WPT 06:00 | PROVIDERS: PCP Nurse Practitioner Family; Visit Provider Podiatrist Foot & Ankle Surgery | DX: Z47.89 Encounter for other orthopedic aftercare (principal) | CPT/HCPCS: 97110; 97530 ==

== ENCOUNTER 2025-01-20 12:00 | Outpatient (CLI) | payer MEDICARE, SELFPAY ==
--- NOTE | 2025-01-20 12:00 | MM_ITS ---
WS: [id number] BILATERAL 3D TOMOSYNTHESIS DIGITAL SCREENING MAMMOGRAPHY WITH CAD CLINICAL INFORMATION: Z12.31 - Encounter for screening mammogram for malignant ... HISTORY: Screening mammogram. No current complaints. COMPARISON: 2021 TECHNIQUE: Bilateral CC and MLO views. FINDINGS: Scattered fibroglandular densities bilaterally. No suspicious focal mass, asymmetry, calcifications, or architectural distortion. No evidence of malignancy. Vascular calcifications. MM/MM scr tomosynthesis [id number] IMPRESSION: DENSITY: There are scattered areas of fibroglandular density. BI-RADS: 2 - Benign. FOLLOW UP: 1 Year Follow-up Recommend return to annual screening mammography.
== END 2025-01-20 12:01 | disposition home or self-care (01) ==
PROVIDERS: PCP Nurse Practitioner Family; Visit Provider Nurse Practitioner Family
DX: Z12.31 Encounter for screening mammogram for malignant neoplasm of breast (principal); R92.323 Mammographic fibroglandular density, bilateral breasts; R92.1 Mammographic calcification found on diagnostic imaging of breast
CPT/HCPCS: 77063; 77067

== ENCOUNTER → 2025-03-03 16:12 | Outpatient (BNVA) | payer MEDICARE, SELFPAY | PROVIDERS: PCP Nurse Practitioner Family; Visit Provider Podiatrist Foot & Ankle Surgery | DX: E11.42 Type 2 diabetes mellitus with diabetic polyneuropathy (principal); L60.3 Nail dystrophy; G62.9 Polyneuropathy, unspecified; Z79.84 Long term (current) use of oral hypoglycemic drugs | CPT/HCPCS: 11721 ==

== ENCOUNTER → 2025-04-06 15:56 | Outpatient (BNVA) | payer MEDICARE, SELFPAY | PROVIDERS: PCP Nurse Practitioner Family; Visit Provider Internal Medicine Cardiovascular Disease | DX: I25.110 Atherosclerotic heart disease of native coronary artery with unstable angina pectoris (principal); I10 Essential (primary) hypertension; Z87.891 Personal history of nicotine dependence | CPT/HCPCS: 99214 ==

== ENCOUNTER → 2025-05-11 11:04 | Outpatient (BNVA) | payer MEDICARE, SELFPAY | PROVIDERS: PCP Nurse Practitioner Family; Visit Provider Nurse Practitioner Family | DX: I10 Essential (primary) hypertension (principal); E11.9 Type 2 diabetes mellitus without complications; E78.2 Mixed hyperlipidemia; E03.9 Hypothyroidism, unspecified; F32.9 Major depressive disorder, single episode, unspecified; F41.9 Anxiety disorder, unspecified; E55.9 Vitamin D deficiency, unspecified | CPT/HCPCS: 80053; 80061; 82306; 83036; 84439; 84443; 85025 ==

== ENCOUNTER 2025-05-18 05:00 | Outpatient (RCR) | payer MEDICARE, SELFPAY | END 2025-06-17 23:59 | disposition home or self-care (01) | LOC: WPT 05:00 | PROVIDERS: PCP Nurse Practitioner Family; Visit Provider Nurse Practitioner Family | DX: M54.9 Dorsalgia, unspecified (principal); G89.29 Other chronic pain | CPT/HCPCS: 97161 ==

== ENCOUNTER 2025-06-02 15:58 | Outpatient (CLI) | payer MEDICARE, SELFPAY ==
--- NOTE | 2025-06-02 16:03 | XRR_ITS ---
PROCEDURE INFORMATION: Exam: XR Lumbosacral Spine Exam date and time: 06/02/2025 4:11 PM Age: 74 years old Clinical indication: Dorslagia; Additional info: M54.9 - dorsalgia, unspecified TECHNIQUE: Imaging protocol: Radiologic exam of the lumbosacral spine. Views: 6 or more views. Including flexion and extension views. COMPARISON: No relevant prior studies available. FINDINGS: Bones/joints: Mild levocurvature of the lumbar spine is present. The normal lumbar lordosis is maintained, with grade 1 anterolisthesis of L4, which is unchanged in flexion or extension views. No spondylolysis identified. No fracture identified. Vertebral body heights are well preserved. There are multilevel degenerative changes, manifested by intervertebral disc space narrowing, endplate osteophytes and facet joint arthrosis. Soft tissues: Unremarkable. XR/XR lumbar spine 6V w f/e [id number] IMPRESSION: 1. No acute injury. 2. Degenerative changes of the lumbar spine, without evidence of dynamic instability.
== END 2025-06-02 15:59 | disposition home or self-care (01) ==
LOC: RAD 16:00
PROVIDERS: PCP Nurse Practitioner Family; Visit Provider Nurse Practitioner Family
DX: M54.9 Dorsalgia, unspecified (principal); G89.29 Other chronic pain; M51.369 Other intervertebral disc degeneration, lumbar region without mention of lumbar back pain or lower extremity pain; M41.86 Other forms of scoliosis, lumbar region; M47.896 Other spondylosis, lumbar region
CPT/HCPCS: 11721; 72114

== ENCOUNTER 2025-06-18 05:00 | Outpatient (RCR) | payer MEDICARE, SELFPAY | END 2025-07-18 23:59 | disposition home or self-care (01) | LOC: WPT 05:00 | PROVIDERS: PCP Nurse Practitioner Family; Visit Provider Nurse Practitioner Family | DX: M54.9 Dorsalgia, unspecified (principal); G89.29 Other chronic pain | CPT/HCPCS: 97110; 97112; 97530 ==

== ENCOUNTER 2025-07-19 05:00 | Outpatient (RCR) | payer MEDICARE, SELFPAY | END 2025-08-17 23:59 | disposition home or self-care (01) | LOC: WPT 05:00 | PROVIDERS: PCP Nurse Practitioner Family; Visit Provider Nurse Practitioner Family | DX: M54.9 Dorsalgia, unspecified (principal); G89.29 Other chronic pain | CPT/HCPCS: 97110; 97530 ==

== ENCOUNTER → 2025-08-09 09:55 | Outpatient (BNVA) | payer MEDICARE, SELFPAY | PROVIDERS: PCP Nurse Practitioner Family; Visit Provider Nurse Practitioner Family | DX: I10 Essential (primary) hypertension (principal); E11.9 Type 2 diabetes mellitus without complications; E55.9 Vitamin D deficiency, unspecified; F41.9 Anxiety disorder, unspecified; F32.9 Major depressive disorder, single episode, unspecified; E78.2 Mixed hyperlipidemia; E03.9 Hypothyroidism, unspecified | CPT/HCPCS: 80053; 80061; 81003; 82306; 83036; 84439; 84443; 85025 ==

== ENCOUNTER 2025-08-18 05:00 | Outpatient (RCR) | payer MEDICARE, SELFPAY | END 2025-09-17 23:59 | disposition home or self-care (01) | LOC: WPT 05:00 | PROVIDERS: PCP Nurse Practitioner Family; Visit Provider Nurse Practitioner Family | DX: E11.42 Type 2 diabetes mellitus with diabetic polyneuropathy (principal); L60.3 Nail dystrophy; G62.9 Polyneuropathy, unspecified; Z79.84 Long term (current) use of oral hypoglycemic drugs; E11.8 Type 2 diabetes mellitus with unspecified complications | CPT/HCPCS: 11721 ==

== ENCOUNTER → 2025-09-20 14:24 | Outpatient (BNVA) | payer MEDICARE, SELFPAY | PROVIDERS: PCP Nurse Practitioner Family; Visit Provider Nurse Practitioner Family | DX: E11.9 Type 2 diabetes mellitus without complications (principal); R42 Dizziness and giddiness | CPT/HCPCS: 80053; 81003; 82962; 85025 ==